=== PATIENT | female | born 1935 | race Caucasian/White ===

== ENCOUNTER 2018-12-27 20:44 | Inpatient (IN) | payer MEDICARE, MEDICAID | END 2018-12-29 11:35 | disposition home or self-care (01) | LOC: PCU 3S 12-28 01:10 → ER 20:44 → ED HOLD 22:30 | DX: T78.3XXA Angioneurotic edema, initial encounter (principal); J96.11 Chronic respiratory failure with hypoxia; N18.3 Chronic kidney disease, stage 3 (moderate); I12.9 Hypertensive chronic kidney disease with stage 1 through stage 4 chronic kidney disease, or unspecified chronic kidney disease; B02.9 Zoster without complications; I48.0 Paroxysmal atrial fibrillation ==

== ENCOUNTER 2019-01-22 07:42 | Emergency (ER) | payer MEDICARE, MEDICAID ==
[~2019-01-22] VITALS: Ht 157.5 cm; Wt 59.0 kg
[~2019-01-22 07:42] MED LIST: BUDE10.2 INH; DIGO250T PO; ESTR2TAB PO; HYDR25TA4 PO; IPRA4AER IH; LEVO75TA56 PO; MAGN250T11 PO; POTA10TA10 PO; PRAM0.258 PO; PREG50CA PO; SIMV40TA4 PO; TORS20TA3 PO; VALA-7 PO
[2019-01-22 08:30] LABS: CLARITY,URINE SLIGHTLY CLOUDY (Clear); COLOR,URINE STRAW (Yellow); GLUCOSE, URINE NEGATIVE (Neg); KETONES,URINE NEGATIVE (Neg); LEUKOCYTE ESTERASE ,URINE TRACE (Neg); NITRITES, URINE NEGATIVE (Neg); OCCULT BLOOD,URINE NEGATIVE (Neg); PH,URINE 7.5 (4.8-8.0); PROTEIN,URINE NEGATIVE (Neg); UROBILINOGEN,URINE 0.2 E.U/dL (0.2-1.0)
[2019-01-22 08:33] LABS: UA COLLECTION TYPE CLN CATCH MIDSTREAM
[2019-01-22 08:35] LABS: BACTERIA,URINE FEW /HPF (Neg); MUCUS STRANDS NONE SEEN /LPF (Neg); RBC,URINE NONE SEEN /HPF (0-2); RENAL CELLS, URINE FEW /HPF; SQUAMOUS EPITHELIAL CELL,UR MODERATE /LPF (FEW); WBC,URINE 0-4 /HPF (0-4)
[2019-01-22 08:36] LABS: BASOPHILS % (AUTO) 0.2 % (0-1); EOSINOPHILS % (AUTO) 0.2 % (0-6); HEMATOCRIT 43.4 % (35.0-45.0); HEMOGLOBIN 14.1 g/dl (12.0-16.0); LYMPHOCYTES % (AUTO) 5.3 % (21-51); MEAN CORPUSCULAR HEMOGLOBIN 30.2 PG (27.0-31.0); MEAN CORPUSCULAR HGB CONC 32.4 g/dL (33.0-36.5); MEAN CORPUSCULAR VOLUME 93.1 FL (78-98); MEAN PLATELET VOLUME 10.6 FL (7.4-10.4); MONOCYTES # (AUTO) 1.2 X10'3 (0-0.9); MONOCYTES % (AUTO) 6.6 % (2-12); NEUTROPHILS # (AUTO) 16.1 X10'3 (1.8-7.7); NEUTROPHILS % (AUTO) 87.7 % (42-75); PLATELET COUNT 282 X10'3 (140-440); RED BLOOD COUNT 4.66 X10'6 (4.20-5.60); RED CELL DISTRIBUTION WIDTH 13.3 % (11.5-14.5); WHITE BLOOD COUNT 18.3 X10'3 (4.5-11.0)
[2019-01-22 08:56] LABS: ALANINE AMINOTRANSFERASE 47 U/L (12-78); ALBUMIN 3.2 G/DL (3.4-5.0); ALBUMIN/GLOBULIN RATIO 0.7 (1.1-1.5); ALKALINE PHOSPHATASE 93 IU/L (46-116); ANION GAP 4 (8-16); ASPARTATE AMINO TRANSFERASE 26 U/L (10-37); BILIRUBIN,TOTAL 0.6 MG/DL (0.1-1.0); BLOOD UREA NITROGEN 17 MG/DL (7-18); BUN/CREATININE RATIO 19.5 (6.6-38.0); CALCIUM 9.2 MG/DL (8.5-10.1); CHLORIDE 97 MMOL/L (99-107); CREATININE 0.87 MG/DL (0.40-0.90); GLUCOSE 157 MG/DL (70-104); POTASSIUM 4.4 MMOL/L (3.5-5.1); SODIUM 140 MMOL/L (135-145); TOTAL CARBON DIOXIDE 38.9 MMOL/L (24-32); TOTAL PROTEIN 7.9 G/DL (6.4-8.2); TROPONIN I < 0.04 NG/ML (0.0-0.05); eGFR 62 ML/MIN
[2019-01-22 09:12] LABS: LARGE PLATELETS FEW; PLATELET ESTIMATE NORMAL; TOTAL CELLS COUNTED 100
[2019-01-22 09:13] LABS: STOMATOCYTES 1+
[2019-01-22] MEDS ORDERED: cephalexin 250mg capsule PO ONE (09:40)
[2019-01-22] MEDS ORDERED: cephalexin 500mg capsule PO ONE (09:45)
[2019-01-22] MEDS ORDERED: CEPH500C5 PO (10:33)
[2019-01-22] MEDS ORDERED: HYDR25TA4 PO (10:33)
[2019-01-22] MEDS ORDERED: HYDROcodone/acetaminophen 10/325mg tab PO ONE (10:35)
[2019-01-22 11:44] VITALS: BP 150/80
== END 2019-01-22 11:49 | disposition home or self-care (01) ==
LOC: ER 07:42
DX: N39.0 Urinary tract infection, site not specified (principal); I10 Essential (primary) hypertension; I48.91 Unspecified atrial fibrillation; J44.9 Chronic obstructive pulmonary disease, unspecified; G62.9 Polyneuropathy, unspecified; Z88.1 Allergy status to other antibiotic agents; Z88.8 Allergy status to other drugs, medicaments and biological substances; Z79.899 Other long term (current) drug therapy; Z90.710 Acquired absence of both cervix and uterus; Z87.891 Personal history of nicotine dependence
CPT/HCPCS: 36415; 71045; 80053; 81001; 83880; 84145; 84484; 85025; 87077; 87088; 87186; 93005; 99284

== ENCOUNTER 2019-07-28 06:28 | Emergency (ER) | payer MEDICARE, MEDICAID ==
[~2019-07-28] VITALS: Ht 172.7 cm; Wt 65.0 kg
[~2019-07-28 06:28] MED LIST changes: +CEPH500C5 PO
[2019-07-28] MEDS ORDERED: LIDOcaine 1% w/epiNEPHrine 1:200,000 30ml vial IM ONE (06:35)
[2019-07-28] MEDS ORDERED: TETanus/Pertussis (Acell)/Diphther VAC/PF (Tdap-Adult) 0.5ml syringe IM ONE (06:35)
[2019-07-28] MEDS ORDERED: ceFAZolin 1000mg inj IV ONE (07:10)
[2019-07-28] MEDS ORDERED: cefazolin/dext.iso 2gm/100ml 100 ML IV ONE (07:15)
[2019-07-28] MEDS ORDERED: bacitracin 15gm ointment TP ONE (07:30)
[2019-07-28 08:15] VITALS: BP 172/80
[2019-07-28] MEDS ORDERED: CEPH-572 PO (09:18)
== END 2019-07-28 09:47 | disposition home or self-care (01) ==
LOC: ER 06:29
DX: S91.112A Laceration without foreign body of left great toe without damage to nail, initial encounter (principal); S91.115A Laceration without foreign body of left lesser toe(s) without damage to nail, initial encounter; S90.415A Abrasion, left lesser toe(s), initial encounter; G62.9 Polyneuropathy, unspecified; I48.91 Unspecified atrial fibrillation; I10 Essential (primary) hypertension; J44.9 Chronic obstructive pulmonary disease, unspecified; Z90.710 Acquired absence of both cervix and uterus; Z88.8 Allergy status to other drugs, medicaments and biological substances; Z88.1 Allergy status to other antibiotic agents; Z88.6 Allergy status to analgesic agent; Z79.899 Other long term (current) drug therapy; W45.8XXA Other foreign body or object entering through skin, initial encounter; Y93.89 Activity, other specified; Y92.092 Bedroom in other non-institutional residence as the place of occurrence of the external cause; Y99.9 Unspecified external cause status
CPT/HCPCS: 73630; 90471; 96365; 99283; J0690

== ENCOUNTER 2019-11-19 16:53 | Inpatient (IN) | payer MEDICARE, MEDICAID ==
[~2019-11-19] VITALS: Ht 152.4 cm; Wt 65.0 kg
[~2019-11-19 16:53] MED LIST changes: +SIMV-45 PO; -SIMV40TA4 PO
[2019-11-19 17:42] LABS: BASOPHILS % (AUTO) 0.1 % (0-1); EOSINOPHILS % (AUTO) 0.2 % (0-6); HEMATOCRIT 38.9 % (35.0-45.0); HEMOGLOBIN 12.7 g/dl (12.0-16.0); LYMPHOCYTES # (AUTO) 1.7 X10'3 (1.1-4.8); LYMPHOCYTES % (AUTO) 8.4 % (21-51); MEAN CORPUSCULAR HEMOGLOBIN 31.5 PG (27.0-31.0); MEAN CORPUSCULAR HGB CONC 32.8 g/dL (33.0-36.5); MEAN CORPUSCULAR VOLUME 96.3 FL (78-98); MEAN PLATELET VOLUME 10.6 FL (7.4-10.4); MONOCYTES # (AUTO) 1.4 X10'3 (0-0.9); MONOCYTES % (AUTO) 6.8 % (2-12); NEUTROPHILS # (AUTO) 16.9 X10'3 (1.8-7.7); NEUTROPHILS % (AUTO) 84.5 % (42-75); PLATELET COUNT 164 X10'3 (140-440); RED BLOOD COUNT 4.04 X10'6 (4.20-5.60)
[2019-11-19 17:50] LABS: ALANINE AMINOTRANSFERASE 43 U/L (12-78); ALBUMIN 3.4 G/DL (3.4-5.0); ALBUMIN/GLOBULIN RATIO 0.9 (1.1-1.5); ALKALINE PHOSPHATASE 54 IU/L (46-116); ANION GAP 6 (8-16); ASPARTATE AMINO TRANSFERASE 22 U/L (10-37); BILIRUBIN,TOTAL 0.4 MG/DL (0.1-1.0); BLOOD UREA NITROGEN 39 MG/DL (7-18); BUN/CREATININE RATIO 31.7 (6.6-38.0); CALCIUM 8.8 MG/DL (8.5-10.1); CHLORIDE 102 MMOL/L (99-107); CREATININE 1.23 MG/DL (0.40-0.90); GLUCOSE 107 MG/DL (70-104); POTASSIUM 3.7 MMOL/L (3.5-5.1); SODIUM 143 MMOL/L (135-145); TOTAL CARBON DIOXIDE 34.6 MMOL/L (24-32); eGFR 42 ML/MIN
[2019-11-19] MEDS ORDERED: CefTRIAXone/D5W-Rocephin 1gm 50 ML IV SCH (17:55)
[2019-11-19 17:58] LABS: LARGE PLATELETS FEW; PLATELET ESTIMATE NORMAL
[2019-11-19] MEDS ORDERED: CefTRIAXone/D5W-Rocephin 1gm 50 ML IV ONE (18:07)
[2019-11-19 18:25] LABS: PARTIAL THROMBOPLASTIN TIME 24 SECONDS (22-32)
[2019-11-19] MEDS ORDERED: HYDR-3972 (18:57)
[2019-11-19 19:02] LABS: CLARITY,URINE SLIGHTLY CLOUDY (Clear); COLOR,URINE YELLOW (Yellow); GLUCOSE, URINE NEGATIVE (Neg); KETONES,URINE NEGATIVE (Neg); LEUKOCYTE ESTERASE ,URINE TRACE (Neg); NITRITES, URINE NEGATIVE (Neg); OCCULT BLOOD,URINE NEGATIVE (Neg); PH,URINE 6.5 (4.8-8.0); PROTEIN,URINE NEGATIVE (Neg); UROBILINOGEN,URINE 0.2 E.U/dL (0.2-1.0)
[2019-11-19 19:10] LABS: UA COLLECTION TYPE VOIDED
--- NOTE | 2019-11-19 19:10 | NUR ---
pt chnaged in to gown taken off o2 at this time o2 sats at 96 % room air will continue to monitor
[2019-11-19 19:15] LABS: BACTERIA,URINE FEW /HPF (Neg); MUCUS STRANDS NONE SEEN /LPF (Neg); RBC,URINE NONE SEEN /HPF (0-2); SQUAMOUS EPITHELIAL CELL,UR MODERATE /LPF (FEW)
--- NOTE | 2019-11-19 19:15 | NUR ---
heprin delay / awaiting pending ptt value prior to infusion
[2019-11-19] MEDS ORDERED: magnesium 4gm in 100ml NS 100 ML IV PRN (19:25)
[2019-11-19] MEDS ORDERED: mag hydrox/Alum hydrox/simeth 30ml oral suspension PO PRN (19:25)
[2019-11-19] MEDS ORDERED: potassium Cl 20 mEq SR tablet PO PRN ×2 (19:25)
[2019-11-19] MEDS ORDERED: magnesium hydroxide 30ml (MOM) UD suspension PO PRN (19:25)
[2019-11-19] MEDS ORDERED: potassium CL 10mEq/100ml bag 100 ML IV PRN ×2 (19:25)
[2019-11-19] MEDS ORDERED: ondansetron/PF 4mg/2ml inj IV PRN (19:25)
[2019-11-19] MEDS ORDERED: magnesium Cl slow-release 64mg tablet PO PRN (19:25)
[2019-11-19] MEDS ORDERED: magnesium 2GM in 50ml NS 50 ML IV PRN (19:25)
[2019-11-19] MEDS ORDERED: acetaminophen 325mg tablet PO PRN (19:25)
[2019-11-19] MEDS ORDERED: non-formulary drug (Pregabalin (Lyrica) 1 CAP) PO PRN (19:30)
[2019-11-19] MEDS ORDERED: non-formulary drug (Ipratropium/Albuterol Sulfate (Combivent Respimat Inhal Spray) 2 PUFFS IH PRN (19:30)
[2019-11-19] MEDS ORDERED: ipratropium/albuterol 3ml nebule IH PRN (19:45)
[2019-11-19] MEDS: heparin 25,000 UNIT/250ml bag 250 ML IV SCH (19:49)
--- NOTE | 2019-11-19 19:50 | NUR ---
md did not order heprin bolus /
[2019-11-19] MEDS ORDERED: non-formulary drug (Budesonide/Formoterol Fumarate (Symbicort 160-4.5 Mcg Inhaler) 2 PUFFS INH SCH (20:00)
[2019-11-19] MEDS: K and/or MAG REPLACEMENT MC SCH (20:00)
--- NOTE | 2019-11-19 20:50 | NUR ---
PHONED PCU FOR REPORT " FERNANDO" STATED RN TO RECIEVE PT WILL HAVE TO CALL BACK FOR REPORT
[2019-11-19] MEDS: valacyclovir 500mg tablet PO SCH (21:00)
--- NOTE | 2019-11-19 21:27 | NUR ---
TROPONIN ELEVATED 3 HR DRAW AT 2.[address] SOLIZ
[2019-11-19 21:30] VITALS: BP 142/75
[2019-11-19] MEDS: albuterol 2.5 MG/3 ML nebule NEB SCH (21:54)
[2019-11-19] MEDS: budesonide 0.5mg/2ml UD nebule IH SCH (21:54)
[2019-11-19] MEDS: pregabalin 25mg capsule PO PRN (23:00)
[2019-11-19] MEDS: atorvastatin 20mg tablet PO SCH (23:00)
[2019-11-19] MEDS: cephalexin 250mg capsule PO SCH (23:01)
[2019-11-19] MEDS: pramipexole 0.25mg tablet PO SCH (23:02)
[2019-11-20] VITALS (7 sets, daily range): BP systolic 129–172; BP diastolic 68–94
[2019-11-20] MEDS: albuterol 2.5 MG/3 ML nebule NEB SCH ×4 (02:14→20:13)
[2019-11-20 03:32] LABS: ALANINE AMINOTRANSFERASE 36 U/L (12-78); ALBUMIN 3.3 G/DL (3.4-5.0); ALBUMIN/GLOBULIN RATIO 0.9 (1.1-1.5); ALKALINE PHOSPHATASE 54 IU/L (46-116); ANION GAP 7 (8-16); ASPARTATE AMINO TRANSFERASE 25 U/L (10-37); BILIRUBIN,TOTAL 0.3 MG/DL (0.1-1.0); BLOOD UREA NITROGEN 34 MG/DL (7-18); BUN/CREATININE RATIO 28.6 (6.6-38.0); CHLORIDE 99 MMOL/L (99-107); CREATININE 1.19 MG/DL (0.40-0.90); GLUCOSE 113 MG/DL (70-104); POTASSIUM 3.9 MMOL/L (3.5-5.1); SODIUM 139 MMOL/L (135-145); TOTAL CARBON DIOXIDE 33.2 MMOL/L (24-32); TOTAL PROTEIN 7.1 G/DL (6.4-8.2); eGFR 43 ML/MIN
[2019-11-20 03:35] LABS: CHOLESTEROL 164 MG/DL (0-200); MAGNESIUM 1.5 MG/DL (1.5-2.4)
[2019-11-20 03:36] LABS: CHOL/HDL RATIO 2.3 (0.00-4.99); HDL CHOLESTEROL 70 MG/DL (35-60); LDL CHOLESTEROL 48 MG/DL (50-100); TRIGLYCERIDES 488 MG/DL (20-135)
[2019-11-20] MEDS: heparin 10,000 units/1 ML INJ IV PRN ×3 (04:01→18:00)
[2019-11-20 05:46] LABS: BASOPHILS % (AUTO) 0.1 % (0-1); EOSINOPHILS % (AUTO) 0 % (0-6); HEMATOCRIT 38.6 % (35.0-45.0); HEMOGLOBIN 12.9 g/dl (12.0-16.0); LYMPHOCYTES # (AUTO) 1.1 X10'3 (1.1-4.8); LYMPHOCYTES % (AUTO) 7.4 % (21-51); MEAN CORPUSCULAR HGB CONC 33.4 g/dL (33.0-36.5); MEAN CORPUSCULAR VOLUME 95.9 FL (78-98); MEAN PLATELET VOLUME 11.8 FL (7.4-10.4); MONOCYTES # (AUTO) 1.3 X10'3 (0-0.9); MONOCYTES % (AUTO) 8.2 % (2-12); NEUTROPHILS % (AUTO) 84.3 % (42-75); PLATELET COUNT 171 X10'3 (140-440); RED BLOOD COUNT 4.02 X10'6 (4.20-5.60); RED CELL DISTRIBUTION WIDTH 14.3 % (11.5-14.5); WHITE BLOOD COUNT 15.4 X10'3 (4.5-11.0)
[2019-11-20 07:11] LABS: GIANT PLATELET FEW; LARGE PLATELETS FEW; PLATELET ESTIMATE NORMAL
[2019-11-20] MEDS: estradiol 1mg tablet PO SCH (07:56)
[2019-11-20] MEDS: cephalexin 250mg capsule PO SCH ×2 (07:56→13:12)
[2019-11-20] MEDS: potassium Cl 20 mEq SR tablet PO SCH (07:56)
[2019-11-20] MEDS: pregabalin 25mg capsule PO PRN ×2 (07:57→18:43)
[2019-11-20] MEDS: levoTHYROXINE 75mcg tablet PO SCH (07:57)
[2019-11-20] MEDS: magnesium oxide 400mg tablet PO SCH (07:57)
[2019-11-20] MEDS ORDERED: non-formulary drug (Magnesium Oxide (Magnesium) 2 TAB) PO SCH (08:00)
[2019-11-20] MEDS: K and/or MAG REPLACEMENT MC SCH ×2 (08:00→19:20)
[2019-11-20] MEDS ORDERED: digoxin 250mcg (0.25mg) tablet PO SCH (08:00)
[2019-11-20] MEDS ORDERED: POTASSIUM CHLORIDE 20 MEQ PO SCH (08:00)
[2019-11-20] MEDS ORDERED: ESTRADIOL PO SCH (08:00)
[2019-11-20] MEDS: TORSEMIDE 20 MG PO SCH (08:00)
[2019-11-20] MEDS: budesonide 0.5mg/2ml UD nebule IH SCH ×2 (09:12→20:13)
[2019-11-20] MEDS: HYDROcodone/acetaminophen 10/325mg tab PO PRN ×3 (09:52→23:39)
[2019-11-20] MEDS ORDERED: aspirin 81mg tab.chew PO ONE (10:55)
[2019-11-20] MEDS: heparin 25,000 UNIT/250ml bag 250 ML IV SCH ×3 (11:23→20:39)
--- NOTE | 2019-11-20 12:46 | NUR ---
Dr. Julien paged regarding increased BP. Home medication, Torsemide not available, Dr. Julien notified. PAGER ID: [phone] MESSAGE: re 3014a Nikkie Horton: Pt Bp 160/86, no currently on bp medication. Home med Torsemide not available and unable to bring in. Can you please change this? Thanks, Liss [phone]
[2019-11-20] MEDS: normal saline 1000ml 1,000 ML IV SCH (14:33)
--- NOTE | 2019-11-20 14:52 | NUR ---
Page sent to Dr. Julien regarding positive blood cultures. PAGER ID: [phone] MESSAGE: re [id number] Nikkie Horton-Pos blood culture-Gram pos cocci in clusters. Thanks, Liss Christianson x [phone]
[2019-11-20] MEDS: CefTRIAXone/D5W-Rocephin 1gm 50 ML IV SCH (15:30)
--- NOTE | 2019-11-20 18:28 | NUR ---
Patient in room PCU 3014. I have received report from Liss DUMONT and had the opportunity to ask questions and assume patient care.
[2019-11-20] MEDS: valacyclovir 500mg tablet PO SCH (20:29)
[2019-11-20] MEDS: pramipexole 0.25mg tablet PO SCH (20:29)
[2019-11-20] MEDS: atorvastatin 20mg tablet PO SCH (20:29)
[2019-11-21] VITALS (9 sets, daily range): BP systolic 128–202; BP diastolic 61–106
[2019-11-21 00:15] LABS: EOSINOPHILS # (AUTO) 0.1 X10'3 (0-0.9); EOSINOPHILS % (AUTO) 0.4 % (0-6); HEMOGLOBIN 13.7 g/dl (12.0-16.0); MONOCYTES # (AUTO) 1.1 X10'3 (0-0.9)
[2019-11-21 00:20] LABS: BASOPHILS % (AUTO) 0.3 % (0-1); HEMATOCRIT 40.3 % (35.0-45.0); LYMPHOCYTES # (AUTO) 1.2 X10'3 (1.1-4.8); LYMPHOCYTES % (AUTO) 8.3 % (21-51); MEAN CORPUSCULAR HEMOGLOBIN 32.2 PG (27.0-31.0); MEAN CORPUSCULAR HGB CONC 33.8 g/dL (33.0-36.5); MEAN PLATELET VOLUME 10.3 FL (7.4-10.4); MONOCYTES % (AUTO) 7.6 % (2-12); NEUTROPHILS # (AUTO) 12.2 X10'3 (1.8-7.7); NEUTROPHILS % (AUTO) 83.4 % (42-75); PLATELET COUNT 167 X10'3 (140-440); RED BLOOD COUNT 4.24 X10'6 (4.20-5.60); RED CELL DISTRIBUTION WIDTH 14.3 % (11.5-14.5); WHITE BLOOD COUNT 14.6 X10'3 (4.5-11.0)
[2019-11-21 00:27] LABS: ALANINE AMINOTRANSFERASE 35 U/L (12-78); ALBUMIN 3.5 G/DL (3.4-5.0); ALBUMIN/GLOBULIN RATIO 0.9 (1.1-1.5); ALKALINE PHOSPHATASE 60 IU/L (46-116); ANION GAP 3 (8-16); ASPARTATE AMINO TRANSFERASE 21 U/L (10-37); BILIRUBIN,TOTAL 0.4 MG/DL (0.1-1.0); BLOOD UREA NITROGEN 27 MG/DL (7-18); BUN/CREATININE RATIO 23.5 (6.6-38.0); CHLORIDE 102 MMOL/L (99-107); CREATININE 1.15 MG/DL (0.40-0.90); GLUCOSE 119 MG/DL (70-104); MAGNESIUM 1.6 MG/DL (1.5-2.4); POTASSIUM 4.3 MMOL/L (3.5-5.1); SODIUM 138 MMOL/L (135-145); TOTAL CARBON DIOXIDE 32.6 MMOL/L (24-32); TOTAL PROTEIN 7.6 G/DL (6.4-8.2); eGFR 45 ML/MIN
[2019-11-21] MEDS: heparin 10,000 units/1 ML INJ IV PRN ×2 (00:45→07:55)
[2019-11-21] MEDS: heparin 25,000 UNIT/250ml bag 250 ML IV SCH ×3 (00:47→16:07)
[2019-11-21] MEDS: albuterol 2.5 MG/3 ML nebule NEB SCH ×3 (02:25→15:35)
[2019-11-21] MEDS: normal saline 1000ml 1,000 ML IV SCH ×2 (03:09→20:29)
--- NOTE | 2019-11-21 06:46 | NUR ---
Problems reprioritized. Patient report given, questions answered & plan of care reviewed with Callum RN.
--- NOTE | 2019-11-21 07:14 | NUR ---
Patient in room PCU 3014. I have received report from TIM SCHULER and had the opportunity to ask questions and assume patient care.
[2019-11-21] MEDS: TORSEMIDE 20 MG PO SCH (08:00)
[2019-11-21] MEDS: K and/or MAG REPLACEMENT MC SCH ×2 (08:00→20:00)
[2019-11-21] MEDS: estradiol 1mg tablet PO SCH (08:30)
[2019-11-21] MEDS: aspirin 81mg tab.chew PO SCH (08:31)
[2019-11-21] MEDS: potassium Cl 20 mEq SR tablet PO SCH (08:31)
[2019-11-21] MEDS: levoTHYROXINE 75mcg tablet PO SCH (08:31)
[2019-11-21] MEDS: magnesium oxide 400mg tablet PO SCH (08:32)
[2019-11-21] MEDS: budesonide 0.5mg/2ml UD nebule IH SCH ×2 (08:42→19:46)
[2019-11-21] MEDS: HYDROcodone/acetaminophen 10/325mg tab PO PRN ×3 (09:08→23:43)
--- NOTE | 2019-11-21 10:00 | NUR ---
discussed removing field start piv left ac,and starting new piv for heparin gtt. pt refused new iv start.
[2019-11-21] MEDS ORDERED: vancomycin/NS 1 GM ADD-VANTAGE 250 ML X 1 DOSE IV ONE (12:05)
--- NOTE | 2019-11-21 12:33 | NUR ---
CALL TO RX, STATES "WE WILL SEND THE VANCO UP, WILL BE IN PT SPECIFIC BOX OR REFRIGERATOR".
--- NOTE | 2019-11-21 12:52 | NUR ---
Pt has a field start IV in her left forearm. Pt refused new IV. Field start IV necessary for heparin drip.
[2019-11-21] MEDS ORDERED: vancomycin/NS 1 GM ADD-VANTAGE 250 ML IV SCH (13:00)
[2019-11-21] MEDS ORDERED: OXY (13:24)
--- NOTE | 2019-11-21 13:32 | NUR ---
PAGER ID: [phone] MESSAGE: DR. LILLY, 2024M/VICTORIA. SHE IS VERY CONCERNED WE ARE NOT GIVING HER DIGOXIN. LEVEL ON ADMIT 3.0 NICKI [id number]. TY
--- NOTE | 2019-11-21 14:48 | NUR ---
PAGER ID: [phone] MESSAGE: DR. LILLY, 3014A/KSESLER, HR NOW SUSTAINING 130. BP 217/129 RIGHT ARM AUTOCUFF.250/130 MAN L, 230/120 R MAN. HAVE NO PRN TREATMENT. NICKI [id number]. TY
--- NOTE | 2019-11-21 14:55 | NUR ---
PT STATES "I HAVE A PAIN PILL AND A DIGOXIN PILL IN MY PURSE. I WILL NOT TAKE THEM". AKED FOR THE PILLS TO STORE IN RX, PT REFUSED. DISCUSSED WITH WOODY SOLIS RN. IF FAMILY COMES WILL ASK IF THEY CAN TAKE THEM HOME FOR HER.
--- NOTE | 2019-11-21 14:57 | NUR ---
DR. LILLY, 3014A/KESSLER, ALONG WITH HR 130 AND BP 250/130, SHE APPEARS VERY ANXIOUS/UPSET SOME OF HER ROUTINE MEDS ARE NOT BEING GIVEN. I NEED HELP WITH HER PLEASE. BP TOO HIGH. HR NOW 150. NICKI [id number]. TY
--- NOTE | 2019-11-21 15:04 | NUR ---
PAGER ID: [phone] MESSAGE: DR. LILLY, 3014A/KESSLER, ALONG WITH HR 130 AND BP 250/130, SHE APPEARS VERY ANXIOUS/UPSET SOME OF HER ROUTINE MEDS ARE NOT BEING GIVEN. I NEED HELP WITH HER PLEASE. BP TOO HIGH. HR NOW 150. NICKI [id number]. TY
[2019-11-21] MEDS ORDERED: hydrALAZINE 20mg/ml inj. IV PRN (15:05)
[2019-11-21] MEDS ORDERED: metoprolol tartrate 1mg/ml inj IV ONE (15:05)
[2019-11-21] MEDS ORDERED: amLODIPine 5mg tablet PO ONE (15:10)
[2019-11-21] MEDS: CefTRIAXone/D5W-Rocephin 1gm 50 ML IV SCH (15:41)
--- NOTE | 2019-11-21 15:47 | NUR ---
HAD ADM LOPRESSOR 5MG IV AND NORVASC 5MG PO, REPEAT BP/HR 165/86, 101. NOW HR 90, BP 172/8. REFUSED IV APPRESOLINE AT THIS TIME. STATES "I AM FELLING BETTER, GIVE IT MORE TIME, I KNOW MY BODY".
--- NOTE | 2019-11-21 17:41 | NUR ---
ASKED GRANDDAUGHTER TO PLEASE TAKE HERE MEDS FROM PURSE TO HOME, AND TO BRING HER TORSEMIDE FROM HOME SO WE CAN GIVE IT. VERBALIZED UNDERSTANDING.
--- NOTE | 2019-11-21 18:27 | NUR ---
Problems reprioritized. Patient report given, questions answered & plan of care reviewed with TIM SCHULER.
--- NOTE | 2019-11-21 18:31 | NUR ---
Patient in room PCU 3014. I have received report from Callum DUMONT and had the opportunity to ask questions and assume patient care.
[2019-11-21] MEDS: pregabalin 25mg capsule PO PRN (19:28)
[2019-11-21] MEDS: carVEDilol 3.125mg tablet PO SCH (19:28)
[2019-11-21] MEDS: ipratropium/albuterol 3ml nebule IH SCH (19:46)
[2019-11-21] MEDS: atorvastatin 20mg tablet PO SCH (20:30)
[2019-11-21] MEDS: valacyclovir 500mg tablet PO SCH (20:30)
[2019-11-21] MEDS: pramipexole 0.25mg tablet PO SCH (20:30)
--- NOTE | 2019-11-21 20:39 | NUR ---
Patient's blood pressure at 1830 was 178/99 and she was given her scheduled night time Coreg before the PRN Hydralazine to see how much this would decrease her blood pressure because she is just starting the Coreg so this would be her first dose. It brought her blood pressure down to 136/64.
[2019-11-22] VITALS (7 sets, daily range): BP systolic 126–173; BP diastolic 60–88
[2019-11-22] MEDS: heparin 25,000 UNIT/250ml bag 250 ML IV SCH ×2 (00:58→07:32)
[2019-11-22] MEDS: ipratropium/albuterol 3ml nebule IH SCH ×4 (01:57→21:25)
[2019-11-22] MEDS: HYDROcodone/acetaminophen 10/325mg tab PO PRN ×3 (05:24→20:18)
[2019-11-22 05:28] LABS: BASOPHILS % (AUTO) 0.2 % (0-1); EOSINOPHILS # (AUTO) 0.1 X10'3 (0-0.9); HEMATOCRIT 34.9 % (35.0-45.0); HEMOGLOBIN 11.8 g/dl (12.0-16.0); LYMPHOCYTES % (AUTO) 8.8 % (21-51); MEAN CORPUSCULAR HEMOGLOBIN 32.2 PG (27.0-31.0); MEAN CORPUSCULAR HGB CONC 33.8 g/dL (33.0-36.5); MEAN CORPUSCULAR VOLUME 95.3 FL (78-98); MEAN PLATELET VOLUME 10.7 FL (7.4-10.4); MONOCYTES # (AUTO) 0.7 X10'3 (0-0.9); NEUTROPHILS # (AUTO) 9.8 X10'3 (1.8-7.7); PLATELET COUNT 156 X10'3 (140-440); RED BLOOD COUNT 3.67 X10'6 (4.20-5.60); RED CELL DISTRIBUTION WIDTH 14.4 % (11.5-14.5); WHITE BLOOD COUNT 11.7 X10'3 (4.5-11.0)
[2019-11-22 05:56] LABS: ALANINE AMINOTRANSFERASE 29 U/L (12-78); ALBUMIN 2.9 G/DL (3.4-5.0); ALBUMIN/GLOBULIN RATIO 0.9 (1.1-1.5); ALKALINE PHOSPHATASE 49 IU/L (46-116); ANION GAP 5 (8-16); ASPARTATE AMINO TRANSFERASE 14 U/L (10-37); BILIRUBIN,TOTAL 0.4 MG/DL (0.1-1.0); BLOOD UREA NITROGEN 24 MG/DL (7-18); BUN/CREATININE RATIO 25.3 (6.6-38.0); CALCIUM 8.3 MG/DL (8.5-10.1); CHLORIDE 105 MMOL/L (99-107); CREATININE 0.95 MG/DL (0.40-0.90); GLUCOSE 117 MG/DL (70-104); MAGNESIUM 1.9 MG/DL (1.5-2.4); POTASSIUM 4.8 MMOL/L (3.5-5.1); SODIUM 138 MMOL/L (135-145); TOTAL CARBON DIOXIDE 28.5 MMOL/L (24-32); TOTAL PROTEIN 6.3 G/DL (6.4-8.2); eGFR 56 ML/MIN
[2019-11-22 06:33] LABS: LARGE PLATELETS FEW; PLATELET ESTIMATE NORMAL
--- NOTE | 2019-11-22 06:46 | NUR ---
Problems reprioritized. Patient report given, questions answered & plan of care reviewed with Callum RN.
--- NOTE | 2019-11-22 07:05 | NUR ---
Patient in room PCU 3014. I have received report from TIM SCHULER and had the opportunity to ask questions and assume patient care.
[2019-11-22] MEDS: budesonide 0.5mg/2ml UD nebule IH SCH ×2 (08:00→21:25)
[2019-11-22] MEDS: K and/or MAG REPLACEMENT MC SCH ×2 (08:00→20:00)
[2019-11-22] MEDS: carVEDilol 3.125mg tablet PO SCH ×2 (09:00→20:16)
[2019-11-22] MEDS: estradiol 1mg tablet PO SCH (09:00)
[2019-11-22] MEDS: potassium Cl 20 mEq SR tablet PO SCH (09:01)
[2019-11-22] MEDS: magnesium oxide 400mg tablet PO SCH (09:02)
[2019-11-22] MEDS: amLODIPine 5mg tablet PO SCH (09:02)
[2019-11-22] MEDS: levoTHYROXINE 75mcg tablet PO SCH (09:03)
[2019-11-22] MEDS: aspirin 81mg tab.chew PO SCH (09:03)
--- NOTE | 2019-11-22 09:14 | NUR ---
Heparin gtt d'olya at this time per MD order.
[2019-11-22] MEDS: TORSEMIDE 20 MG PO SCH (12:00)
--- NOTE | 2019-11-22 12:55 | NUR ---
Administered 1300 dose of Vancomycin per primary RN request. Pt educated on side effects and to notify staff immediately if she experiences any adverse reactions, pt verbalizes understanding. Pt also requesting breathing tx, paged RT.
[2019-11-22] MEDS ORDERED: vancomycin/NS 1 GM ADD-VANTAGE 250 ML IV SCH (13:00)
[2019-11-22] MEDS: CefTRIAXone/D5W-Rocephin 1gm 50 ML IV SCH (15:51)
[2019-11-22] MEDS: normal saline 1000ml 1,000 ML IV SCH (16:05)
--- NOTE | 2019-11-22 16:26 | NUR ---
Reassessed pt's BP at this time as 1500 BP was elevated. Pt states that she was upset when previous blood pressure was assessed but that she is feeling better now. Blood pressure at this time is 142/71. Pt resting comfortably, no signs of distress.
--- NOTE | 2019-11-22 18:19 | NUR ---
Problems reprioritized. Patient report given, questions answered & plan of care reviewed with timbo walters.
[2019-11-22] MEDS: atorvastatin 20mg tablet PO SCH (20:16)
[2019-11-22] MEDS: valacyclovir 500mg tablet PO SCH (20:16)
[2019-11-22] MEDS: pramipexole 0.25mg tablet PO SCH (20:16)
--- NOTE | 2019-11-22 21:40 | NUR ---
Patient in room PCU 3014. I have received report from TIM Nolen and had the opportunity to ask questions and assume patient care.
[2019-11-23] MEDS: HYDROcodone/acetaminophen 10/325mg tab PO PRN ×2 (01:20→08:09)
[2019-11-23 02:00] VITALS: BP 153/77
[2019-11-23] MEDS: ipratropium/albuterol 3ml nebule IH SCH ×2 (02:50→09:13)
[2019-11-23 06:00] VITALS: BP 153/75
[2019-11-23 06:18] LABS: BASOPHILS % (AUTO) 0.2 % (0-1); EOSINOPHILS # (AUTO) 0.1 X10'3 (0-0.9); HEMATOCRIT 37.3 % (35.0-45.0); HEMOGLOBIN 12.5 g/dl (12.0-16.0); LYMPHOCYTES # (AUTO) 0.9 X10'3 (1.1-4.8); LYMPHOCYTES % (AUTO) 6.6 % (21-51); MEAN CORPUSCULAR HEMOGLOBIN 31.9 PG (27.0-31.0); MEAN CORPUSCULAR HGB CONC 33.4 g/dL (33.0-36.5); MEAN CORPUSCULAR VOLUME 95.5 FL (78-98); MONOCYTES # (AUTO) 0.8 X10'3 (0-0.9); MONOCYTES % (AUTO) 5.6 % (2-12); NEUTROPHILS % (AUTO) 86.6 % (42-75); PLATELET COUNT 172 X10'3 (140-440); RED BLOOD COUNT 3.91 X10'6 (4.20-5.60); RED CELL DISTRIBUTION WIDTH 14.3 % (11.5-14.5); WHITE BLOOD COUNT 13.8 X10'3 (4.5-11.0)
--- NOTE | 2019-11-23 06:29 | NUR ---
Problems reprioritized. Patient report given, questions answered & plan of care reviewed with TIM MARCUS.
--- NOTE | 2019-11-23 06:30 | NUR ---
Patient in room PCU 3014. I have received report from Sandra DUMONT and had the opportunity to ask questions and assume patient care.
[2019-11-23 06:41] LABS: ALANINE AMINOTRANSFERASE 34 U/L (12-78); ALBUMIN 3.2 G/DL (3.4-5.0); ALBUMIN/GLOBULIN RATIO 0.9 (1.1-1.5); ALKALINE PHOSPHATASE 58 IU/L (46-116); ANION GAP 6 (8-16); ASPARTATE AMINO TRANSFERASE 14 U/L (10-37); BILIRUBIN,TOTAL 0.4 MG/DL (0.1-1.0); BLOOD UREA NITROGEN 27 MG/DL (7-18); BUN/CREATININE RATIO 26.5 (6.6-38.0); CALCIUM 8.5 MG/DL (8.5-10.1); CHLORIDE 101 MMOL/L (99-107); CREATININE 1.02 MG/DL (0.40-0.90); GLUCOSE 107 MG/DL (70-104); MAGNESIUM 1.8 MG/DL (1.5-2.4); POTASSIUM 4.4 MMOL/L (3.5-5.1); SODIUM 137 MMOL/L (135-145); TOTAL CARBON DIOXIDE 30.5 MMOL/L (24-32); TOTAL PROTEIN 6.8 G/DL (6.4-8.2); eGFR 52 ML/MIN
[2019-11-23] MEDS: K and/or MAG REPLACEMENT MC SCH (08:00)
[2019-11-23] MEDS: magnesium oxide 400mg tablet PO SCH (08:07)
[2019-11-23] MEDS: levoTHYROXINE 75mcg tablet PO SCH (08:07)
[2019-11-23] MEDS: aspirin 81mg tab.chew PO SCH (08:07)
[2019-11-23] MEDS: amLODIPine 5mg tablet PO SCH (08:07)
[2019-11-23] MEDS: carVEDilol 3.125mg tablet PO SCH (08:07)
[2019-11-23] MEDS: potassium Cl 20 mEq SR tablet PO SCH (08:08)
[2019-11-23] MEDS: estradiol 1mg tablet PO SCH (08:08)
[2019-11-23] MEDS: TORSEMIDE 20 MG PO SCH (08:08)
[2019-11-23] MEDS: budesonide 0.5mg/2ml UD nebule IH SCH (09:13)
[2019-11-23] MEDS ORDERED: CARV-49 PO (10:29)
[2019-11-23] MEDS ORDERED: ASPI-1265 PO (10:29)
[2019-11-23] MEDS ORDERED: AMOX-422 PO (10:29)
[2019-11-23] MEDS ORDERED: APIX5TAB3 PO (10:30)
[2019-11-23 11:00] VITALS: BP 161/92
[2019-11-23 12:03] VITALS: BP 157/61
--- NOTE | 2019-11-23 12:47 | NUR ---
Patient stable for discharge per MD orders. All discharge instructions reviewed with patient and family. All questions answered. New prescriptions e-scripted into patient preferred pharmacy. PIV & cardiac monitor technician discontinued. Belongings collected and sent with patient. Patient left in private vehicle with family. Patient wheeled down to lobby by primary RN.
[2019-11-24] MEDS ORDERED: VANCOMYCIN LEVEL IV ONE (12:30)
== END 2019-11-23 12:47 | disposition home or self-care (01) | DRG 871 ==
LOC: ER 16:53 → ED HOLD 19:21 → PCU 3S 21:30
PROVIDERS: ADMIT Internal Medicine; ATTEND Family Medicine
DX: A41.9 Sepsis, unspecified organism (principal); I21.4 Non-ST elevation (NSTEMI) myocardial infarction; N39.0 Urinary tract infection, site not specified; N17.9 Acute kidney failure, unspecified; I48.21 Permanent atrial fibrillation; E87.2 Acidosis; I25.110 Atherosclerotic heart disease of native coronary artery with unstable angina pectoris; J44.1 Chronic obstructive pulmonary disease with (acute) exacerbation; N18.9 Chronic kidney disease, unspecified; E03.9 Hypothyroidism, unspecified; E78.5 Hyperlipidemia, unspecified; I12.9 Hypertensive chronic kidney disease with stage 1 through stage 4 chronic kidney disease, or unspecified chronic kidney disease; J44.9 Chronic obstructive pulmonary disease, unspecified; Z79.82 Long term (current) use of aspirin; Z80.1 Family history of malignant neoplasm of trachea, bronchus and lung; Z80.8 Family history of malignant neoplasm of other organs or systems; Z87.891 Personal history of nicotine dependence; Z90.710 Acquired absence of both cervix and uterus; Z88.1 Allergy status to other antibiotic agents; Z88.8 Allergy status to other drugs, medicaments and biological substances; Z79.899 Other long term (current) drug therapy; Z90.49 Acquired absence of other specified parts of digestive tract
CPT/HCPCS: 36415; 71045; 76937; 80053; 80061; 80162; 81001; 83036; 83605; 83735; 84443; 84484; 85025; 85610; 85730; 87040; 87077; 87081; 87088; 87186; 87502; 87503; 93005; 93306; 94640; 94760; 96365; 99285; G0378; J0360; J0696; J1644; J3370; J3490; J7030; J7626

== ENCOUNTER 2020-07-15 10:58 | Inpatient (IN) | payer MEDICARE, MEDICAID ==
[~2020-07-15] VITALS: Ht 172.7 cm; Wt 59.1 kg
[2020-07-15] VITALS (7 sets, daily range): BP systolic 118–155; BP diastolic 48–85
[~2020-07-15 10:58] MED LIST changes: +APIX5TAB3 PO; +ASPI-1265 PO; -CEPH500C5 PO; -DIGO250T PO; +HYDR-3972; -HYDR25TA4 PO; +OXY
[2020-07-15 11:34] LABS: CLARITY,URINE SLIGHTLY CLOUDY (Clear); COLOR,URINE YELLOW (Yellow); GLUCOSE, URINE NEGATIVE (Neg); KETONES,URINE NEGATIVE (Neg); LEUKOCYTE ESTERASE ,URINE NEGATIVE (Neg); NITRITES, URINE NEGATIVE (Neg); OCCULT BLOOD,URINE NEGATIVE (Neg); PROTEIN,URINE NEGATIVE (Neg); UA COLLECTION TYPE CLN CATCH MIDSTREAM; UROBILINOGEN,URINE 0.2 E.U/dL (0.2-1.0)
[2020-07-15 11:37] LABS: BASOPHILS # (AUTO) 0.1 X10'3 (0-0.2); BASOPHILS % (AUTO) 0.5 % (0-1); EOSINOPHILS # (AUTO) 0.2 X10'3 (0-0.9); EOSINOPHILS % (AUTO) 1.6 % (0-6); HEMATOCRIT 36.9 % (35.0-45.0); LYMPHOCYTES # (AUTO) 1.6 X10'3 (1.1-4.8); LYMPHOCYTES % (AUTO) 12.4 % (21-51); MEAN CORPUSCULAR HEMOGLOBIN 30.6 PG (27.0-31.0); MEAN CORPUSCULAR HGB CONC 32.4 g/dL (33.0-36.5); MEAN CORPUSCULAR VOLUME 94.2 FL (78-98); MEAN PLATELET VOLUME 11.3 FL (7.4-10.4); MONOCYTES # (AUTO) 0.9 X10'3 (0-0.9); MONOCYTES % (AUTO) 7.2 % (2-12); NEUTROPHILS % (AUTO) 78.3 % (42-75); PLATELET COUNT 127 X10'3 (140-440); RED BLOOD COUNT 3.91 X10'6 (4.20-5.60); WHITE BLOOD COUNT 12.8 X10'3 (4.5-11.0)
[2020-07-15 11:42] LABS: BACTERIA,URINE FEW /HPF (Neg); RBC,URINE 0-2 /HPF (0-2); SQUAMOUS EPITHELIAL CELL,UR MANY /LPF (FEW); WBC,URINE 0-4 /HPF (0-4)
[2020-07-15 11:54] LABS: ALANINE AMINOTRANSFERASE 12 U/L (12-78); ALBUMIN 3.3 G/DL (3.4-5.0); ALBUMIN/GLOBULIN RATIO 0.8 (1.1-1.5); ALKALINE PHOSPHATASE 53 IU/L (46-116); ANION GAP -1 (8-16); ASPARTATE AMINO TRANSFERASE 12 U/L (10-37); BILIRUBIN,TOTAL 0.4 MG/DL (0.1-1.0); BLOOD UREA NITROGEN 42 MG/DL (7-18); BUN/CREATININE RATIO 40.4 (6.6-38.0); CALCIUM 8.8 MG/DL (8.5-10.1); CHLORIDE 99 MMOL/L (99-107); CREATININE 1.04 MG/DL (0.40-0.90); GLUCOSE 132 MG/DL (70-104); LARGE PLATELETS FEW; PLATELET ESTIMATE DECREASED; POTASSIUM 4.3 MMOL/L (3.5-5.1); SODIUM 141 MMOL/L (135-145); STOMATOCYTES 3+; TOTAL PROTEIN 7.4 G/DL (6.4-8.2); eGFR 51 ML/MIN
--- NOTE | 2020-07-15 11:57 | NUR ---
LAB CALLED CO2 [address] BARKER
[2020-07-15] MEDS ORDERED: aspirin 81mg tab.chew PO ONE (12:45)
[2020-07-15] MEDS ORDERED: albuterol 2.5 MG/3 ML nebule NEB ONE (12:45)
[2020-07-15] MEDS ORDERED: furosemide 40mg/4ml inj IV ONE (12:45)
[2020-07-15] MEDS ORDERED: nitroGLYCERIN 0.4mg/hour patch TD ONE (12:45)
[2020-07-15] MEDS ORDERED: pantoprazole 40 MG vial IV ONE (12:45)
[2020-07-15] MEDS ORDERED: normal saline 1000ML IV soln IVB ONE (12:45)
[2020-07-15 12:59] LABS: LIPASE 87 U/L (73-393)
[2020-07-15 14:05] LABS: ABG BASE EXCESS 10.4 mmol/L (-2.0-2.0); ABG HCO3 41.1 mmol/L (22.0-26.0); ABG OXYGEN SATURATION 98.4 % (94-97); ABG PCO2 (T) 91.4 mmHg (32.0-45.0); ALLEN'S TEST POSITIVE; FCOHb 0.6 % (0.0-3.9); FLOW 2 L/min; FMetHb 0.1 % (0.0-1.5); FO2Hb 97.7 % (94-97); TOTAL HEMOGLOBIN 13.6 G/dl (12.0-16.0)
--- NOTE | 2020-07-15 14:24 | NUR ---
pt state pain in chest is almost all gone
[2020-07-15] MEDS ORDERED: DIGO250T (14:35)
[2020-07-15] MEDS ORDERED: magnesium Cl slow-release 64mg tablet PO PRN (14:45)
[2020-07-15] MEDS ORDERED: diphenhydrAMINE 25mg capsule PO PRN (14:45)
[2020-07-15] MEDS ORDERED: methylPREDNISolone sod succ 125mg/2ml vial IV ONE (14:45)
[2020-07-15] MEDS ORDERED: bisacodyl 10mg suppository rectal RC PRN (14:45)
[2020-07-15] MEDS ORDERED: potassium Cl 20 mEq SR tablet PO PRN (14:45)
[2020-07-15] MEDS ORDERED: diphenhydrAMINE 50 mg/ml inj IV PRN (14:45)
[2020-07-15] MEDS ORDERED: acetaminophen 325mg tablet PO PRN ×2 (14:45)
[2020-07-15] MEDS ORDERED: ondansetron/PF 4mg/2ml inj IV PRN (14:45)
[2020-07-15] MEDS ORDERED: morphine 2 MG/ML inj. syringe IV PRN ×2 (14:45)
[2020-07-15] MEDS ORDERED: potassium CL 10mEq/100ml bag 100 ML IV PRN ×2 (14:45)
[2020-07-15] MEDS ORDERED: magnesium 4gm in 100ml NS 100 ML IV PRN (14:45)
[2020-07-15] MEDS ORDERED: magnesium 2GM in 50ml NS 50 ML IV PRN (14:45)
[2020-07-15] MEDS ORDERED: acetaminophen 650mg rectal suppository RC PRN (14:45)
[2020-07-15] MEDS ORDERED: mag hydrox/Alum hydrox/simeth 30ml oral suspension PO PRN (14:45)
[2020-07-15] MEDS: ipratropium/albuterol 3ml nebule NEB SCH ×3 (15:00→23:43)
[2020-07-15 15:14] LABS: HEMOGLOBIN A1C 5.8 % (4.5-6.2)
--- NOTE | 2020-07-15 15:55 | NUR ---
Page to Dr. Mckeon Critical Lab Value PAGER ID: [phone] MESSAGE: Sherri Horton 3025A: Digoxin Level is 2.9 TxFederico Renee RN [phone]
[2020-07-15] MEDS: normal saline 1000ml 1,000 ML IV SCH (16:18)
[2020-07-15] MEDS: CefTRIAXone/D5W-Rocephin 1gm 50 ML IV SCH (16:18)
[2020-07-15] MEDS: azithromycin 250mg tablet PO SCH (16:20)
[2020-07-15] MEDS ORDERED: DIGOXIN IMMUNE FAB IV ONE ×3 (16:30)
[2020-07-15] MEDS ORDERED: [UNRECOGNIZED DRUG - OTHER] IV ONE ×3 (16:30)
[2020-07-15] MEDS ORDERED: WATER FOR INJECTION IV ONE ×3 (16:30)
[2020-07-15] MEDS ORDERED: STERILE IV ONE ×3 (16:30)
[2020-07-15 17:36] LABS: ABG BASE EXCESS 13.6 mmol/L (-2.0-2.0); ABG HCO3 42.5 mmol/L (22.0-26.0); ABG OXYGEN SATURATION 93.7 % (94-97); ABG PCO2 (T) 77.6 mmHg (32.0-45.0); ABG PO2 (T) 67.1 mmHg (75.0-100.0); ALLEN'S TEST POSITIVE; FCOHb 0.3 % (0.0-3.9); FMetHb 0.3 % (0.0-1.5); FO2Hb 93.1 % (94-97); RESPIRATORY RATE 12 b/min; TOTAL HEMOGLOBIN 12.8 G/dl (12.0-16.0)
--- NOTE | 2020-07-15 17:37 | NUR ---
Page to Mike: EDNA results on bi-pap PAGER ID: [phone] MESSAGE: [id number] Nikkie Horton on bi-pap results: Please see results Thankv You Simi RT. [phone] Pco2 was 91.4 and now is 77.6
--- NOTE | 2020-07-15 19:02 | NUR ---
Patient in room PCU 3025. I have received report from Thelma DUMONT and had the opportunity to ask questions and assume patient care.
[2020-07-15] MEDS ORDERED: budesonide 0.5mg/2ml UD nebule IH SCH (20:00)
[2020-07-15] MEDS: K and/or MAG REPLACEMENT MC SCH (20:00)
[2020-07-15] MEDS: valacyclovir 500mg tablet PO SCH (20:34)
[2020-07-15] MEDS: apixaban 5mg tablet PO SCH (20:34)
[2020-07-15] MEDS: atorvastatin 20mg tablet PO SCH (20:34)
[2020-07-15] MEDS: furosemide 40mg/4ml inj IV SCH (20:35)
[2020-07-15] MEDS: methylPREDNISolone sod succ 125mg/2ml vial IV SCH (20:35)
[2020-07-15] MEDS ORDERED: albuterol 2.5 MG/3 ML nebule NEB SCH (21:00)
[2020-07-15] MEDS ORDERED: temazepam 15mg capsule PO PRN (21:00)
[2020-07-15] MEDS: HYDROcodone/acetaminophen 10/325mg tab PO PRN (22:02)
[2020-07-15] MEDS: magnesium hydroxide 30ml (MOM) UD suspension PO PRN (22:13)
--- NOTE | 2020-07-15 23:23 | NUR ---
PAGER ID: [phone] MESSAGE: [id number] Nikkie Horton Orders just received for DNR code status but patient wants to be a limited code status with no intubation. May I get orders for new code status. Candida DUMONT ext [phone]
--- NOTE | 2020-07-15 23:26 | NUR ---
Talked to Dr Lynn on the phone regarding patient status. Dr Lynn stated she did not want to get between patient and Dr Mckeon discussion and orders. Received orders from Dr Lynn to leave patient status as DNR regardless of the fact that the patient wants to be a limited code with no intubation.
[2020-07-16] MEDS: methylPREDNISolone sod succ 125mg/2ml vial IV SCH ×4 (01:56→20:40)
[2020-07-16 02:03] VITALS: BP 114/58
[2020-07-16] MEDS: ipratropium/albuterol 3ml nebule NEB SCH ×6 (03:54→23:16)
[2020-07-16 06:00] VITALS: BP 119/55
[2020-07-16 06:07] LABS: EOSINOPHILS % (AUTO) 0 % (0-6); MEAN CORPUSCULAR VOLUME 93.8 FL (78-98); MONOCYTES # (AUTO) 0.1 X10'3 (0-0.9)
[2020-07-16 06:10] LABS: BASOPHILS % (AUTO) 0.1 % (0-1); HEMOGLOBIN 12.2 g/dl (12.0-16.0); LYMPHOCYTES # (AUTO) 0.8 X10'3 (1.1-4.8); MEAN CORPUSCULAR HEMOGLOBIN 30.8 PG (27.0-31.0); MEAN CORPUSCULAR HGB CONC 32.8 g/dL (33.0-36.5); MEAN PLATELET VOLUME 11.9 FL (7.4-10.4); NEUTROPHILS # (AUTO) 6.7 X10'3 (1.8-7.7); NEUTROPHILS % (AUTO) 88.9 % (42-75); PLATELET COUNT 141 X10'3 (140-440); RED BLOOD COUNT 3.95 X10'6 (4.20-5.60); RED CELL DISTRIBUTION WIDTH 14.2 % (11.5-14.5); WHITE BLOOD COUNT 7.5 X10'3 (4.5-11.0)
[2020-07-16 06:30] LABS: ALANINE AMINOTRANSFERASE 12 U/L (12-78); ALBUMIN 3.2 G/DL (3.4-5.0); ALBUMIN/GLOBULIN RATIO 0.8 (1.1-1.5); ALKALINE PHOSPHATASE 49 IU/L (46-116); ANION GAP 4 (8-16); ASPARTATE AMINO TRANSFERASE 14 U/L (10-37); BILIRUBIN,TOTAL 0.3 MG/DL (0.1-1.0); BLOOD UREA NITROGEN 45 MG/DL (7-18); BUN/CREATININE RATIO 34.1 (6.6-38.0); CALCIUM 8.5 MG/DL (8.5-10.1); CHLORIDE 97 MMOL/L (99-107); CHOL/HDL RATIO 2.3 (0.00-4.99); CHOLESTEROL 149 MG/DL (0-200); CREATININE 1.32 MG/DL (0.40-0.90); GLUCOSE 165 MG/DL (70-104); HDL CHOLESTEROL 66 MG/DL (35-60); LDL CHOLESTEROL 57 MG/DL (50-100); MAGNESIUM 1.8 MG/DL (1.5-2.4); PHOSPHORUS 3.5 MG/DL (2.3-4.5); POTASSIUM 3.3 MMOL/L (3.5-5.1); SODIUM 142 MMOL/L (135-145); TOTAL PROTEIN 7.3 G/DL (6.4-8.2); TRIGLYCERIDES 225 MG/DL (20-135); eGFR 39 ML/MIN
--- NOTE | 2020-07-16 06:30 | NUR ---
Problems reprioritized. Patient report given, questions answered & plan of care reviewed with Liss DUMONT and Sammie DUMONT.
[2020-07-16 06:35] LABS: TOTAL CARBON DIOXIDE 40.7 MMOL/L (24-32)
--- NOTE | 2020-07-16 06:42 | NUR ---
Rm. 3667MClifford. FYI Critical CO2 of 40.7, has decreased from yesterday value of 43.0. Sammie
[2020-07-16] MEDS: HYDROcodone/acetaminophen 10/325mg tab PO PRN ×2 (07:39→21:18)
[2020-07-16 08:00] VITALS: BP_SYST 147; BP_SYST 152; BP_SYST 163; BP_DIAS 75; BP_DIAS 76
[2020-07-16] MEDS: K and/or MAG REPLACEMENT MC SCH ×2 (08:00→20:00)
[2020-07-16 08:12] LABS: LARGE PLATELETS FEW; PLATELET ESTIMATE DECREASED; STOMATOCYTES 2+
[2020-07-16] MEDS: furosemide 40mg/4ml inj IV SCH ×2 (09:54→20:40)
[2020-07-16] MEDS: potassium Cl 20 mEq SR tablet PO PRN ×2 (09:56→21:20)
[2020-07-16] MEDS: levoTHYROXINE 75mcg tablet PO SCH (09:57)
[2020-07-16] MEDS: azithromycin 250mg tablet PO SCH (09:58)
[2020-07-16] MEDS: apixaban 5mg tablet PO SCH ×2 (09:59→20:40)
[2020-07-16] MEDS: CefTRIAXone/D5W-Rocephin 1gm 50 ML IV SCH (10:15)
--- NOTE | 2020-07-16 10:47 | NUR ---
pt requested something for anxiety. Paged
[2020-07-16] MEDS: magnesium hydroxide 30ml (MOM) UD suspension PO PRN (10:59)
[2020-07-16 11:00] VITALS: BP 136/60
[2020-07-16] MEDS: normal saline 1000ml 1,000 ML IV SCH (11:02)
[2020-07-16] MEDS ORDERED: bisacodyl 10mg suppository rectal RC ONE (11:50)
[2020-07-16] MEDS ORDERED: bisacodyl 5mg tablet.DR PO PRN (11:50)
--- NOTE | 2020-07-16 11:57 | NUR ---
New orders from Dr. Mckeon, Dulcolax supp, 10mg and PO PRN, Ativan 1mg tab PO Q4, Colace BID ordered
[2020-07-16] MEDS: LORazepam 1 MG tablet PO PRN (12:52)
[2020-07-16] MEDS: pregabalin 25mg capsule PO PRN (13:21)
--- NOTE | 2020-07-16 17:49 | NUR ---
Orientee documentation: I have reviewed and agree with interventions, assessments performed and documented by Sammie Pichardo. Orientee Medication Administration: For this medication-pass time frame, medication were reviewed, dispensed, administered and documented per hospital policy by Sammie PICHARDO.
[2020-07-16 18:00] VITALS: BP 143/113
--- NOTE | 2020-07-16 18:25 | NUR ---
Problems reprioritized. Patient report given, questions answered & plan of care reviewed with Candida DUMONT.
--- NOTE | 2020-07-16 18:31 | NUR ---
Patient in room PCU 3025. I have received report from Liss DUMONT and Sammie DUMONT and had the opportunity to ask questions and assume patient care.
[2020-07-16] MEDS: docusate sod 100mg capsule PO SCH (20:00)
[2020-07-16] MEDS: valacyclovir 500mg tablet PO SCH (20:40)
[2020-07-16] MEDS: lactobacillus rhamnosus 10,000 MMU CELLS/CAPSULE PO SCH (20:40)
[2020-07-16] MEDS: atorvastatin 20mg tablet PO SCH (20:40)
[2020-07-16 22:00] VITALS: BP 153/69
--- NOTE | 2020-07-16 22:34 | NUR ---
PAGER ID: [phone] MESSAGE: [phone] Nikkie Horton Admitted for chest pressure. Is currently having chest pain radiating to back and jaw. Blood pressure 193/76 and heart rate 105 in A fib. Getting a stat EKG now. Candida DUMONT ext [phone]
[2020-07-16] MEDS ORDERED: metoprolol tartrate 1mg/ml inj IV PRN (22:40)
[2020-07-16] MEDS ORDERED: aminophylline 250mg/10ml inj. IV PRN (22:40)
[2020-07-16] MEDS ORDERED: magnesium 2GM in 50ml NS 50 ML IV ONE ×2 (22:50→23:15)
[2020-07-16] MEDS ORDERED: nitroGLYCERIN 0.4mg SUBLingual tab SL PRN ×2 (22:50→23:10)
[2020-07-16] MEDS: nitroGLYCERIN 0.4mg SUBLingual tab SL PRN (22:59)
[2020-07-17] VITALS (7 sets, daily range): BP systolic 112–216; BP diastolic 62–106
[2020-07-17] MEDS: pregabalin 25mg capsule PO PRN ×2 (01:28→08:14)
[2020-07-17] MEDS: potassium Cl 20 mEq SR tablet PO PRN (01:28)
[2020-07-17] MEDS: methylPREDNISolone sod succ 125mg/2ml vial IV SCH ×4 (02:43→21:28)
[2020-07-17] MEDS: ipratropium/albuterol 3ml nebule NEB SCH ×6 (03:49→23:15)
[2020-07-17 05:20] LABS: HEMOGLOBIN 11.5 g/dl (12.0-16.0)
[2020-07-17 05:24] LABS: BASOPHILS % (AUTO) 0.2 % (0-1); EOSINOPHILS % (AUTO) 0 % (0-6); HEMATOCRIT 35.1 % (35.0-45.0); LYMPHOCYTES # (AUTO) 0.7 X10'3 (1.1-4.8); LYMPHOCYTES % (AUTO) 3.9 % (21-51); MEAN CORPUSCULAR HGB CONC 32.8 g/dL (33.0-36.5); MEAN CORPUSCULAR VOLUME 94.5 FL (78-98); MEAN PLATELET VOLUME 11.5 FL (7.4-10.4); MONOCYTES # (AUTO) 0.4 X10'3 (0-0.9); NEUTROPHILS # (AUTO) 17.9 X10'3 (1.8-7.7); NEUTROPHILS % (AUTO) 93.9 % (42-75); PLATELET COUNT 175 X10'3 (140-440); RED BLOOD COUNT 3.72 X10'6 (4.20-5.60); RED CELL DISTRIBUTION WIDTH 14.5 % (11.5-14.5); WHITE BLOOD COUNT 19.1 X10'3 (4.5-11.0)
[2020-07-17 05:36] LABS: ALANINE AMINOTRANSFERASE 14 U/L (12-78); ALBUMIN 3.2 G/DL (3.4-5.0); ALBUMIN/GLOBULIN RATIO 0.8 (1.1-1.5); ALKALINE PHOSPHATASE 42 IU/L (46-116); ANION GAP 10 (8-16); ASPARTATE AMINO TRANSFERASE 15 U/L (10-37); BILIRUBIN,TOTAL 0.2 MG/DL (0.1-1.0); BLOOD UREA NITROGEN 51 MG/DL (7-18); BUN/CREATININE RATIO 31.3 (6.6-38.0); CALCIUM 8.3 MG/DL (8.5-10.1); CHLORIDE 94 MMOL/L (99-107); CREATININE 1.63 MG/DL (0.40-0.90); GLUCOSE 205 MG/DL (70-104); MAGNESIUM 3.1 MG/DL (1.5-2.4); PHOSPHORUS 2.8 MG/DL (2.3-4.5); POTASSIUM 3.6 MMOL/L (3.5-5.1); SODIUM 138 MMOL/L (135-145); TOTAL CARBON DIOXIDE 33.6 MMOL/L (24-32); eGFR 30 ML/MIN
[2020-07-17] MEDS: HYDROcodone/acetaminophen 10/325mg tab PO PRN (05:54)
[2020-07-17] MEDS ORDERED: regadenoson 0.4mg/5ml syringe IV ONE (06:00)
--- NOTE | 2020-07-17 06:33 | NUR ---
Problems reprioritized. Patient report given, questions answered & plan of care reviewed with Liss DUMONT and Sammie DUMONT.
[2020-07-17] MEDS: normal saline 1000ml 1,000 ML IV SCH (07:00)
[2020-07-17 07:11] LABS: LARGE PLATELETS FEW; PLATELET ESTIMATE NORMAL
--- NOTE | 2020-07-17 07:56 | NUR ---
Patient in room PCU 3025. I have received report from Candida DUMONT and had the opportunity to ask questions and assume patient care. Patient is in bed, offers no complaints, will continue to monitor.
[2020-07-17] MEDS: docusate sod 100mg capsule PO SCH ×3 (08:00→21:28)
[2020-07-17] MEDS: K and/or MAG REPLACEMENT MC SCH ×2 (08:00→19:07)
[2020-07-17] MEDS: CefTRIAXone/D5W-Rocephin 1gm 50 ML IV SCH (08:13)
[2020-07-17] MEDS: furosemide 40mg/4ml inj IV SCH ×2 (08:13→21:27)
[2020-07-17] MEDS: apixaban 5mg tablet PO SCH ×2 (08:14→21:28)
[2020-07-17] MEDS: levoTHYROXINE 75mcg tablet PO SCH (08:15)
[2020-07-17] MEDS: azithromycin 250mg tablet PO SCH (08:15)
[2020-07-17] MEDS: lactobacillus rhamnosus 10,000 MMU CELLS/CAPSULE PO SCH ×2 (08:16→20:00)
--- NOTE | 2020-07-17 10:02 | NUR ---
Rm [id number], Leonela, Pt has pulled out multiple PIVs by thrashing, limited to hand could you come try to place one, thank you.
--- NOTE | 2020-07-17 10:13 | NUR ---
Patient returned to the floor from the unsuccessful stress test due to high blood pressure and a headache. Patient is back to bed and asking to speak to the MD as she would like to just go home. Will page .
--- NOTE | 2020-07-17 10:45 | NUR ---
Rm. 3025A, Clifford. pt. BP 183/86 after coming back from an unsuccessful Elizabeth. Pt. would like to go home. Sammie [phone]
--- NOTE | 2020-07-17 11:48 | NUR ---
spoke with Dr Mckeon regnitishing BP and request to go home, ordered 20mg hyd. IV X1
[2020-07-17] MEDS ORDERED: hydrALAZINE 20mg/ml inj. IV ONE (11:50)
[2020-07-17] MEDS ORDERED: LORazepam 2 mg/ml vial IV ONE (12:05)
--- NOTE | 2020-07-17 12:19 | NUR ---
1210- RT AT PATIENTS ROOM FOR 1100 SVN TX, PT CURRENTLY ON CAMMODE, RT WILL RETURN FOR SVN TX AT A LATER TIME. Addendum: 07/17/20 at 1221 by Mariann Sepulveda RT Amended: Links added.
[2020-07-17] MEDS: LORazepam 1 MG tablet PO PRN (13:09)
--- NOTE | 2020-07-17 15:50 | NUR ---
promotional table spacer PAGER ID: [phone] MESSAGE: Thomas 8069DClifford. Pt is having increasing confusion, and is difficult to keep awake, would you like to get a Stat ABG? Will page RT and place her back on Bipap. Thanks Liss [phone]
--- NOTE | 2020-07-17 15:55 | NUR ---
Rm 6103F, Clifford. Can you please come check the Bipap, it is making a strange sound. Thank you
[2020-07-17 16:16] LABS: ABG BASE EXCESS 10.9 mmol/L (-2.0-2.0); ABG HCO3 36.9 mmol/L (22.0-26.0); ABG OXYGEN SATURATION 94.4 % (94-97); ABG PO2 (T) 69.5 mmHg (75.0-100.0); ALLEN'S TEST POSITIVE; FCOHb 0.3 % (0.0-3.9); FLOW 2 L/min; FO2Hb 94.1 % (94-97); TOTAL HEMOGLOBIN 12.9 G/dl (12.0-16.0)
--- NOTE | 2020-07-17 16:23 | NUR ---
PAGER ID: [phone] MESSAGE: Thomas 4846UClifford. ABG results are in, RT said she did not need Bipap. Would you like to reduce or d/c the Ativan for anxiety as she may be sensitive to it?
--- NOTE | 2020-07-17 17:13 | NUR ---
unable to obtain orthostatic vitals Addendum: 07/17/20 at 1715 by Sammie Lira RN Amended: Links added.
--- NOTE | 2020-07-17 17:17 | NUR ---
Non administered the lexiscan medication as the patient will not be having the lexiscan
--- NOTE | 2020-07-17 18:20 | NUR ---
Orientee documentation: I have reviewed and agree with interventions, assessments performed and documented by Sammie DUMONT. Orientee Medication Administration: For this medication-pass time frame, medication were reviewed, dispensed, administered and documented per hospital policy by Sammie DUMONT.
--- NOTE | 2020-07-17 18:21 | NUR ---
Problems reprioritized. Patient report given, questions answered & plan of care reviewed with Xenia DUMONT.
--- NOTE | 2020-07-17 18:32 | NUR ---
Patient in room U 3025. I have received report from Liss DUMONT and had the opportunity to ask questions and assume patient care. Patient was awake and sitting up in bed during report. No acute distress noted.
--- NOTE | 2020-07-17 19:00 | NUR ---
Patient's family dropped off some clothing and belongings of the patient including some depends. I educated the patient about the hospital policy not supporting the use of depends, but she said that she wanted to use them anyway. The patient has been using them for incontinence but stated that she rarely soils them.
[2020-07-17] MEDS: HYDROcodone/acetaminophen 5mg/325mg tablet PO PRN (19:38)
[2020-07-17] MEDS: valacyclovir 500mg tablet PO SCH (21:28)
[2020-07-17] MEDS: atorvastatin 20mg tablet PO SCH (21:28)
--- NOTE | 2020-07-17 23:13 | NUR ---
Sent page to Dr Way: Patient Nikkie Horton 8536S. Patient has BP of 216/106. Received 1X dose of 20mg Hydralazine today. No current PRN to address BP. Could I please get a PRN order? Silvia DUMONT ext. [phone]
[2020-07-17] MEDS: hydrALAZINE 20mg/ml inj. IV PRN (23:51)
[2020-07-18] VITALS (16 sets, daily range): BP systolic 117–173; BP diastolic 51–88
[2020-07-18] MEDS: pregabalin 25mg capsule PO PRN ×2 (01:29→21:41)
[2020-07-18] MEDS: nitroGLYCERIN 0.4mg SUBLingual tab SL PRN (02:03)
--- NOTE | 2020-07-18 02:12 | NUR ---
Patient woke up and called complaining of chest heaviness that she would rate at a 7/10. She was given one dose on SL Nitro and her pain was relieved so no further doses required. Blood pressure stable. Will continue to monitor.
[2020-07-18] MEDS: HYDROcodone/acetaminophen 10/325mg tab PO PRN ×2 (03:22→22:38)
[2020-07-18] MEDS: normal saline 1000ml 1,000 ML IV SCH ×2 (03:25→22:42)
[2020-07-18] MEDS: ipratropium/albuterol 3ml nebule NEB SCH ×6 (03:45→23:00)
--- NOTE | 2020-07-18 04:50 | NUR ---
Orientee documentation: I have reviewed and agree with all interventions, assessments performed and documented by Silvia DUMONT. Orientee Medication Administration: For this medication-pass time frame, all medication were reviewed, dispensed, administered and documented per hospital policy by Silvia DUMONT.
[2020-07-18 06:04] LABS: BASOPHILS % (AUTO) 0.1 % (0-1); EOSINOPHILS % (AUTO) 0 % (0-6); HEMATOCRIT 36.2 % (35.0-45.0); HEMOGLOBIN 11.9 g/dl (12.0-16.0); LYMPHOCYTES # (AUTO) 0.8 X10'3 (1.1-4.8); LYMPHOCYTES % (AUTO) 4.1 % (21-51); MEAN CORPUSCULAR HEMOGLOBIN 30.9 PG (27.0-31.0); MEAN CORPUSCULAR HGB CONC 32.9 g/dL (33.0-36.5); MEAN PLATELET VOLUME 11.4 FL (7.4-10.4); MONOCYTES # (AUTO) 0.9 X10'3 (0-0.9); MONOCYTES % (AUTO) 4.6 % (2-12); NEUTROPHILS # (AUTO) 18.2 X10'3 (1.8-7.7); NEUTROPHILS % (AUTO) 91.2 % (42-75); PLATELET COUNT 220 X10'3 (140-440); RED BLOOD COUNT 3.86 X10'6 (4.20-5.60); RED CELL DISTRIBUTION WIDTH 14.8 % (11.5-14.5); WHITE BLOOD COUNT 19.9 X10'3 (4.5-11.0)
[2020-07-18 06:13] LABS: ALANINE AMINOTRANSFERASE 12 U/L (12-78); ALBUMIN 3.3 G/DL (3.4-5.0); ALBUMIN/GLOBULIN RATIO 0.9 (1.1-1.5); ALKALINE PHOSPHATASE 45 IU/L (46-116); ANION GAP 8 (8-16); ASPARTATE AMINO TRANSFERASE 8 U/L (10-37); BILIRUBIN,TOTAL 0.3 MG/DL (0.1-1.0); BLOOD UREA NITROGEN 58 MG/DL (7-18); BUN/CREATININE RATIO 47.5 (6.6-38.0); CALCIUM 8.2 MG/DL (8.5-10.1); CHLORIDE 98 MMOL/L (99-107); CREATININE 1.22 MG/DL (0.40-0.90); GLUCOSE 165 MG/DL (70-104); MAGNESIUM 2.8 MG/DL (1.5-2.4); PHOSPHORUS 2.6 MG/DL (2.3-4.5); POTASSIUM 3.6 MMOL/L (3.5-5.1); SODIUM 140 MMOL/L (135-145); TOTAL CARBON DIOXIDE 33.7 MMOL/L (24-32); eGFR 42 ML/MIN
--- NOTE | 2020-07-18 06:25 | NUR ---
Problems reprioritized. Patient report given, questions answered & plan of care reviewed with Jennifer DUMONT.
--- NOTE | 2020-07-18 06:26 | NUR ---
Patient in room PCU 3020A. I have received report from Polly DUMONT and had the opportunity to ask questions and assume patient care.
[2020-07-18 06:50] LABS: LARGE PLATELETS FEW; PLATELET ESTIMATE NORMAL
--- NOTE | 2020-07-18 07:35 | NUR ---
Notified by nurses aide that patient was c/o 7/10 chest pain radiating to jaw, went in to assess patient and administered 1 dose of nitroglycerin, chest pain subsided, no additional dose given, will continue to monitor closely.
[2020-07-18] MEDS: furosemide 40mg/4ml inj IV SCH ×2 (07:42→21:40)
[2020-07-18] MEDS: CefTRIAXone/D5W-Rocephin 1gm 50 ML IV SCH (07:42)
[2020-07-18] MEDS: methylPREDNISolone sod succ/PF 40mg inj. IV SCH ×3 (07:42→15:18)
[2020-07-18] MEDS: levoTHYROXINE 75mcg tablet PO SCH (07:48)
[2020-07-18] MEDS: azithromycin 250mg tablet PO SCH (07:49)
[2020-07-18] MEDS: apixaban 5mg tablet PO SCH ×2 (07:49→21:41)
[2020-07-18] MEDS: lactobacillus rhamnosus 10,000 MMU CELLS/CAPSULE PO SCH ×2 (07:49→21:41)
[2020-07-18] MEDS: K and/or MAG REPLACEMENT MC SCH ×2 (07:50→19:19)
[2020-07-18] MEDS: hydrALAZINE 20mg/ml inj. IV PRN (08:05)
--- NOTE | 2020-07-18 08:40 | NUR ---
Sent a page to Dr Mike fernandez PAGER ID: [phone] MESSAGE: Jennifer DUMONT [phone], E Clifford, pt is agreeable to Elizabeth this AM, has been NPO since midnight, had on episode of chest pain this AM, relieved with nitro, do you want to re order one? thanks Addendum: 07/18/20 at 0849 by Kiana Vilchis RN Spoke with Dr Mckeon via telephone, received orders for Elizabeth scan, sent a page to [facility], will continue to monitor the patient closely.
[2020-07-18] MEDS ORDERED: nitroGLYCERIN 0.4mg SUBLingual tab SL PRN (08:45)
[2020-07-18] MEDS ORDERED: metoprolol tartrate 1mg/ml inj IV PRN (08:45)
[2020-07-18] MEDS ORDERED: aminophylline 250mg/10ml inj. IV PRN (08:45)
[2020-07-18] MEDS ORDERED: regadenoson 0.4mg/5ml syringe IV PRN (08:45)
--- NOTE | 2020-07-18 10:18 | NUR ---
left unit to go down to nuc med for stress test
--- NOTE | 2020-07-18 10:32 | NUR ---
Spoke with patients daughter, Tatum, and updated her on the current plan of care. Tatum is aware that her mother is down at a stress test right now but states that her mom wants to come home today. Will continue to update the family and monitor the patient closely. Addendum: 07/18/20 at 1056 by Kiana Vilchis RN Tatum [phone]
--- NOTE | 2020-07-18 10:55 | NUR ---
Spoke with patients daughter, Estelita at [phone], and updated her on the current plan of care. Estelita is aware that her mother is down at a stress test right now but states that her mom wants to come home today. Will continue to update the family and monitor the patient closely.
[2020-07-18] MEDS: diltiazem CD 180mg cap (once-daily) PO SCH (12:06)
[2020-07-18] MEDS: LORazepam 0.5 MG tablet PO PRN (12:06)
[2020-07-18] MEDS: HYDROcodone/acetaminophen 5mg/325mg tablet PO PRN (12:58)
--- NOTE | 2020-07-18 15:46 | NUR ---
Sent a page to Dr Mckeon re PAGER ID: [phone] MESSAGE: Jennifer DUMONT [phone] 3025A E Horton, elizabeth results not back yet, can I feed her? If (+) stress test pt states she does not want intervention, states she really wants to go home, please advise, thanks Addendum: 07/18/20 at 1551 by Kiana Vilchis RN Spoke to Dr Mckeon via telephone, received orders for heart healthy diet, RN will call down to radiology to see why the Elizabeth results are taking so long to result, reiterated to MD that patient told RN, "I want to go home, I want to at home" and that the patient is tearful and depressed. MD aware, will continue to monitor the patient closely.
--- NOTE | 2020-07-18 16:05 | NUR ---
Called down to radiology to see why this patient NM Elizabeth scan isn't read yet, radiology personnel stated that they are behind but they will get to it today. Will continue to monitor the patient closely.
--- NOTE | 2020-07-18 16:55 | NUR ---
Called patients daughter Ally and updated her on the patients plan of care.
--- NOTE | 2020-07-18 17:10 | NUR ---
Sent a page to Dr Mike fernandez PAGER ID: [phone] MESSAGE: Jennifer DUMONT [phone] 3025A, YUSEF Kirk results negative, thanks
--- NOTE | 2020-07-18 18:15 | NUR ---
Problems reprioritized. Patient report given, questions answered & plan of care reviewed with Billy DUMONT and Pema DUMONT.
--- NOTE | 2020-07-18 18:16 | NUR ---
Patient in room PCU 3024G. I have received report from TIM Rodriguez and had the opportunity to ask questions and assume patient care. Patient asleep for bedside report, on 2L nasal cannula, saline locked and is stable at this time. Will continue to monitor closely.
--- NOTE | 2020-07-18 18:42 | NUR ---
Patient in room PCU 3025. I have received report from Jennifer DUMONT and had the opportunity to ask questions and assume patient care. Patient was resting comfortably during report.
[2020-07-18] MEDS: atorvastatin 20mg tablet PO SCH (21:41)
[2020-07-18] MEDS: docusate sod 100mg capsule PO SCH (21:41)
[2020-07-18] MEDS: valacyclovir 500mg tablet PO SCH (21:41)
--- NOTE | 2020-07-19 | NUR ---
Patient in room PCU 3025. I have received report from Silvia DUMONT and had the opportunity to ask questions and assume patient care.
--- NOTE | 2020-07-19 | NUR ---
Problems reprioritized. Patient report given, questions answered & plan of care reviewed with TIM LEMON.
[2020-07-19 02:00] VITALS: BP 149/72
[2020-07-19] MEDS: HYDROcodone/acetaminophen 10/325mg tab PO PRN ×2 (02:54→07:30)
[2020-07-19] MEDS: ipratropium/albuterol 3ml nebule NEB SCH ×3 (03:00→12:06)
[2020-07-19 05:07] LABS: BASOPHILS % (AUTO) 0.1 % (0-1); EOSINOPHILS % (AUTO) 0 % (0-6); HEMATOCRIT 32.8 % (35.0-45.0); HEMOGLOBIN 10.7 g/dl (12.0-16.0); LYMPHOCYTES # (AUTO) 0.6 X10'3 (1.1-4.8); LYMPHOCYTES % (AUTO) 4.4 % (21-51); MEAN CORPUSCULAR HEMOGLOBIN 30.7 PG (27.0-31.0); MEAN CORPUSCULAR HGB CONC 32.7 g/dL (33.0-36.5); MEAN CORPUSCULAR VOLUME 93.8 FL (78-98); MONOCYTES # (AUTO) 0.9 X10'3 (0-0.9); MONOCYTES % (AUTO) 6.9 % (2-12); NEUTROPHILS # (AUTO) 11.1 X10'3 (1.8-7.7); NEUTROPHILS % (AUTO) 88.6 % (42-75); PLATELET COUNT 201 X10'3 (140-440); RED CELL DISTRIBUTION WIDTH 14.9 % (11.5-14.5); WHITE BLOOD COUNT 12.6 X10'3 (4.5-11.0)
[2020-07-19 05:32] LABS: ALANINE AMINOTRANSFERASE 18 U/L (12-78); ALBUMIN 3.1 G/DL (3.4-5.0); ALKALINE PHOSPHATASE 39 IU/L (46-116); ANION GAP 5 (8-16); ASPARTATE AMINO TRANSFERASE 20 U/L (10-37); BILIRUBIN,TOTAL 0.4 MG/DL (0.1-1.0); BLOOD UREA NITROGEN 55 MG/DL (7-18); BUN/CREATININE RATIO 40.7 (6.6-38.0); CALCIUM 7.7 MG/DL (8.5-10.1); CHLORIDE 101 MMOL/L (99-107); CREATININE 1.35 MG/DL (0.40-0.90); GLUCOSE 162 MG/DL (70-104); MAGNESIUM 2.7 MG/DL (1.5-2.4); PHOSPHORUS 3.6 MG/DL (2.3-4.5); POTASSIUM 3.4 MMOL/L (3.5-5.1); SODIUM 141 MMOL/L (135-145); TOTAL CARBON DIOXIDE 35.1 MMOL/L (24-32); TOTAL PROTEIN 6.3 G/DL (6.4-8.2); eGFR 38 ML/MIN
[2020-07-19 06:00] VITALS: BP 147/72
--- NOTE | 2020-07-19 06:27 | NUR ---
Problems reprioritized. Patient report given, questions answered & plan of care reviewed with Justine DUMONT.
[2020-07-19 06:35] LABS: LARGE PLATELETS FEW; PLATELET ESTIMATE NORMAL
--- NOTE | 2020-07-19 06:37 | NUR ---
Patient in room PCU 3025. I have received report from Candido DUMONT and had the opportunity to ask questions and assume patient care.
[2020-07-19] MEDS: docusate sod 100mg capsule PO SCH (07:30)
[2020-07-19] MEDS: apixaban 5mg tablet PO SCH (07:30)
[2020-07-19] MEDS: diltiazem CD 180mg cap (once-daily) PO SCH (07:30)
[2020-07-19] MEDS: levoTHYROXINE 75mcg tablet PO SCH (07:30)
[2020-07-19] MEDS: azithromycin 250mg tablet PO SCH (07:31)
[2020-07-19] MEDS: furosemide 40mg/4ml inj IV SCH (07:31)
[2020-07-19] MEDS: CefTRIAXone/D5W-Rocephin 1gm 50 ML IV SCH (07:31)
[2020-07-19] MEDS: lactobacillus rhamnosus 10,000 MMU CELLS/CAPSULE PO SCH (07:31)
[2020-07-19] MEDS ORDERED: methylPREDNISolone sod succ/PF 40mg inj. IV SCH (08:00)
[2020-07-19] MEDS: K and/or MAG REPLACEMENT MC SCH (08:00)
[2020-07-19] MEDS ORDERED: potassium CL 10mEq/100ml bag 100 ML IV PRN (09:50)
[2020-07-19] MEDS ORDERED: potassium Cl 20 mEq SR tablet PO PRN ×2 (09:50)
--- NOTE | 2020-07-19 09:50 | NUR ---
PAGER ID: [phone] MESSAGE: [phone] Nikkie Horton: Pt K is 3.4, no orders for K replacement, would you like to start K replacement protocol? thanks uli [phone]
--- NOTE | 2020-07-19 09:52 | NUR ---
received orders to start K replacement per dr. garcía
[2020-07-19 11:00] VITALS: BP 183/72
--- NOTE | 2020-07-19 12:28 | NUR ---
PAGER ID: [phone] MESSAGE: [id number] Nikkie Horton: YUSEF BP is elevated at 183/72 hr 72, pt states she is excited to be discharged. thanks uli [phone]
[2020-07-19 13:00] VITALS: BP 166/78
[2020-07-19] MEDS: LORazepam 0.5 MG tablet PO PRN (13:11)
[2020-07-19] MEDS ORDERED: LACT1CAP26 PO (13:56)
[2020-07-19] MEDS ORDERED: CEFD300C3 PO (13:56)
[2020-07-19] MEDS ORDERED: DILT180C66 PO (13:56)
--- NOTE | 2020-07-19 15:37 | NUR ---
pt is stable for discharge per md orders, discharge instructions reviewed w/ pt and daughter over the phone and all questions answered, scheduled appt with Dr. garcia on 08/03/20 @ 1320,new med prescription called in to [facility] in [place], tele monitor removed and returned, piv dc'ed intact, clean dry dressing in place, pt discharges to home @ 1530, wheeled down to lobby w/ hospital staff w/ home O2 to private vehicle with daughter, all belongings w/ pt at time of discharge
--- NOTE | 2020-07-20 13:44 | NUR ---
Case Management DC follow up: Spoke with pt & pt daughter via telephone. Status post: SOB, CP/pressure r/t advanced COPD. reports:"really good, but been having anxiety" pt daughter states she is "eating well". Went over breathing exercises. pt also noted that she is on 2L of O2 / and has been keeping it 98%. Went over DC packet instructions, pt to keep O2 around 90% according to Dr coley r/t advanced COPD. pt agrees to reiterate safe Sat levels & managing high BP w/PCP, pt BP 165/70 this AM per pt. Denies: acute/continuous cp, emergent SOB, acute general pain, resp distress, N/V, vertigo, sycope episodes, CLEMENTS blurry vision, abd pain/distension, diarrhea, bladder pain, dysuria, polyuria, hematuria, retention, urgency, unexplained bleeding/bruising,fever. Pt does states she is constipated, but has stool softeners. Went over orthostatic hypotension protocol as precaution r/t new medications.Verbalizes understanding of s/s that would warrant 08-10/ER visit for evaluation. Verbalizes understanding of new Rx: Cefdinir, cardizem, culturelle, why prescribed, resumes current Rx as ordered, denies ase r/t polypharmacy. Acknowledges need to schedule/keep follow up appts w/PCP/Rachel pt agrees to call to set up appt, Dr Trores 08/03/20. Special Certificate Dictator/Asael as needed. HHS/Assured assigned to pt. Verbalizes compliance w/DC aftercare. Needs met, questions answered at DC, no further questions r/t post status DC at this time.
== END 2020-07-19 16:03 | disposition home health service (06) | DRG 291 ==
LOC: ER 10:59 → ED HOLD 14:42 → PCU 3S 15:17
PROVIDERS: ADMIT Family Medicine; ATTEND Family Medicine
PROC: 4A02XM4 Measurement of Cardiac Total Activity, External Approach (ICD-10-PCS; principal; 2020-07-18)
PROC: 3E033HZ Introduction of Radioactive Substance into Peripheral Vein, Percutaneous Approach (ICD-10-PCS; 2020-07-18)
DX: I11.0 Hypertensive heart disease with heart failure (principal); J96.90 Respiratory failure, unspecified, unspecified whether with hypoxia or hypercapnia; J44.1 Chronic obstructive pulmonary disease with (acute) exacerbation; I47.2 Ventricular tachycardia; E87.2 Acidosis; I50.33 Acute on chronic diastolic (congestive) heart failure; T46.0X5A Adverse effect of cardiac-stimulant glycosides and drugs of similar action, initial encounter; I48.91 Unspecified atrial fibrillation; G62.9 Polyneuropathy, unspecified; Z85.841 Personal history of malignant neoplasm of brain; Z85.118 Personal history of other malignant neoplasm of bronchus and lung; I27.20 Pulmonary hypertension, unspecified; E03.9 Hypothyroidism, unspecified; Z79.890 Hormone replacement therapy; Z66 Do not resuscitate; D72.829 Elevated white blood cell count, unspecified; G20 Parkinson's disease; I25.2 Old myocardial infarction; Z79.01 Long term (current) use of anticoagulants; Z80.8 Family history of malignant neoplasm of other organs or systems; Z87.891 Personal history of nicotine dependence; Z90.710 Acquired absence of both cervix and uterus
CPT/HCPCS: 36415; 36600; 71045; 78451; 78453; 80053; 80061; 80162; 81001; 82803; 83036; 83605; 83690; 83735; 83880; 84100; 84443; 84484; 85018; 85025; 87040; 87081; 92508; 92616; 93005; 93017; 93306; 94640; 94660; 94760; 96361; 96374; 96375; 97110; 97116; 97161; 97530; 99285; A9500; C9113; G0378; J0360; J0696; J1162; J1940; J2785; J2920; J2930; J3475; J7030

== ENCOUNTER 2020-09-15 12:42 | Emergency (ER) | payer MEDICARE, MEDICAID ==
[~2020-09-15] VITALS: Ht 152.4 cm; Wt 62.0 kg
[~2020-09-15 12:42] MED LIST changes: -ASPI-1265 PO; +DILT180C66 PO; -HYDR-3972; +HYDR-3972 PO; +LACT1CAP26 PO; -POTA10TA10 PO
[2020-09-15 14:14] LABS: CLARITY,URINE CLEAR (Clear); COLOR,URINE STRAW (Yellow); GLUCOSE, URINE NEGATIVE (Neg); KETONES,URINE NEGATIVE (Neg); LEUKOCYTE ESTERASE ,URINE NEGATIVE (Neg); NITRITES, URINE NEGATIVE (Neg); OCCULT BLOOD,URINE NEGATIVE (Neg); PROTEIN,URINE NEGATIVE (Neg); UROBILINOGEN,URINE 0.2 E.U/dL (0.2-1.0)
[2020-09-15 14:18] LABS: UA COLLECTION TYPE CLN CATCH MIDSTREAM
[2020-09-15 14:35] VITALS: BP 137/64
== END 2020-09-15 15:47 | disposition home or self-care (01) ==
LOC: ER 12:42
DX: R30.0 Dysuria (principal); G62.9 Polyneuropathy, unspecified; I48.91 Unspecified atrial fibrillation; I50.9 Heart failure, unspecified; I11.0 Hypertensive heart disease with heart failure; J44.9 Chronic obstructive pulmonary disease, unspecified; Z90.710 Acquired absence of both cervix and uterus; Z98.890 Other specified postprocedural states; Z88.8 Allergy status to other drugs, medicaments and biological substances; Z79.01 Long term (current) use of anticoagulants; Z79.899 Other long term (current) drug therapy
CPT/HCPCS: 81003; 99283

== ENCOUNTER 2020-09-18 11:06 | Inpatient (IN) | payer MEDICARE, MEDICAID ==
[2020-09-18] VITALS (10 sets, daily range): BP systolic 112–163; BP diastolic 61–88
[~2020-09-18] VITALS: Ht 152.4 cm; Wt 62.3 kg
[2020-09-18 12:08] LABS: BASOPHILS % (AUTO) 0.5 % (0-1); EOSINOPHILS # (AUTO) 0.1 X10'3 (0-0.9); EOSINOPHILS % (AUTO) 0.7 % (0-6); HEMATOCRIT 25.1 % (35.0-45.0); LYMPHOCYTES # (AUTO) 0.7 X10'3 (1.1-4.8); LYMPHOCYTES % (AUTO) 7.7 % (21-51); MEAN CORPUSCULAR HEMOGLOBIN 28.6 PG (27.0-31.0); MEAN CORPUSCULAR HGB CONC 31.9 g/dL (33.0-36.5); MEAN CORPUSCULAR VOLUME 89.7 FL (78-98); MEAN PLATELET VOLUME 10.3 FL (7.4-10.4); MONOCYTES # (AUTO) 0.8 X10'3 (0-0.9); MONOCYTES % (AUTO) 9.2 % (2-12); NEUTROPHILS # (AUTO) 7.5 X10'3 (1.8-7.7); NEUTROPHILS % (AUTO) 81.9 % (42-75); PLATELET COUNT 221 X10'3 (140-440); RED BLOOD COUNT 2.79 X10'6 (4.20-5.60); RED CELL DISTRIBUTION WIDTH 15.7 % (11.5-14.5); WHITE BLOOD COUNT 9.2 X10'3 (4.5-11.0)
[2020-09-18 12:29] LABS: ALANINE AMINOTRANSFERASE 17 U/L (12-78); ALBUMIN 3.2 G/DL (3.4-5.0); ALBUMIN/GLOBULIN RATIO 0.8 (1.1-1.5); ALKALINE PHOSPHATASE 65 IU/L (46-116); ANION GAP 0 (8-16); ASPARTATE AMINO TRANSFERASE 14 U/L (10-37); BILIRUBIN,TOTAL 0.3 MG/DL (0.1-1.0); BLOOD UREA NITROGEN 21 MG/DL (7-18); CALCIUM 8.8 MG/DL (8.5-10.1); CHLORIDE 103 MMOL/L (99-107); CREATININE 0.84 MG/DL (0.40-0.90); GLUCOSE 107 MG/DL (70-104); POTASSIUM 3.1 MMOL/L (3.5-5.1); SODIUM 144 MMOL/L (135-145); TOTAL PROTEIN 7.1 G/DL (6.4-8.2); eGFR 65 ML/MIN
[2020-09-18 12:32] LABS: TOTAL CARBON DIOXIDE 40.9 MMOL/L (24-32)
[2020-09-18] MEDS ORDERED: normal saline 1000ML IV soln IVB ONE (13:40)
[2020-09-18] MEDS ORDERED: pantoprazole 40MG/NS 100ML BAG 100 ML IV ONE (13:46)
[2020-09-18] MEDS ORDERED: piperacillin/tazo 3.375gm/50ml 50 ML IV ONE (13:50)
[2020-09-18] MEDS ORDERED: magnesium hydroxide 30ml (MOM) UD suspension PO PRN (13:55)
[2020-09-18] MEDS ORDERED: ondansetron/PF 4mg/2ml inj IV PRN (13:55)
[2020-09-18] MEDS ORDERED: mag hydrox/Alum hydrox/simeth 30ml oral suspension PO PRN (13:55)
[2020-09-18] MEDS ORDERED: acetaminophen 325mg tablet PO PRN (13:55)
[2020-09-18 14:01] LABS: ABG BASE EXCESS 15.6 mmol/L (-2.0-2.0); ABG HCO3 41.9 mmol/L (22.0-26.0); ABG OXYGEN SATURATION 98.3 % (94-97); ABG PCO2 (T) 62.5 mmHg (32.0-45.0); ABG PO2 (T) 122.2 mmHg (75.0-100.0); ALLEN'S TEST POSITIVE; FCOHb 0.3 % (0.0-3.9); FMetHb 0.1 % (0.0-1.5); FO2Hb 97.9 % (94-97); PATIENT TEMPERATURE 36.5; TOTAL HEMOGLOBIN 8.9 G/dl (12.0-16.0)
[2020-09-18] MEDS ORDERED: CARV6.253 PO (14:09)
[2020-09-18] MEDS ORDERED: HYDR25TA4 PO (14:09)
[2020-09-18] MEDS ORDERED: OLME40TA18 PO (14:09)
[2020-09-18] MEDS ORDERED: DABI150C PO (14:09)
[2020-09-18] MEDS ORDERED: DIGO250T PO (14:09)
[2020-09-18] MEDS ORDERED: DILT180C90 PO (14:09)
[2020-09-18] MEDS ORDERED: DOCU100C40 PO (14:32)
[2020-09-18] MEDS ORDERED: ACET325T55 PO (14:32)
[2020-09-18] MEDS ORDERED: FURO20TA4 PO (14:32)
[2020-09-18] MEDS ORDERED: LACT1TAB21 PO (14:32)
--- NOTE | 2020-09-18 15:12 | NUR ---
Patient returns from CT. Respiratory paged to set up bipap.
[2020-09-18] MEDS ORDERED: ATOR20TA66 PO (16:34)
--- NOTE | 2020-09-18 17:27 | NUR ---
PT GAVE CONSENT TO UPDATE DAUGHTER ON STATUS. IT WAS PROVIDED.
[2020-09-18 17:41] LABS: ABG BASE EXCESS 0.4 mmol/L (-2.0-2.0); ABG HCO3 25.7 mmol/L (22.0-26.0); ABG OXYGEN SATURATION 98.9 % (94-97); ABG PCO2 (T) 44.8 mmHg (32.0-45.0); ABG PO2 (T) 147.6 mmHg (75.0-100.0); ALLEN'S TEST POSITIVE; FCOHb 0.1 % (0.0-3.9); FMetHb 0.1 % (0.0-1.5); FO2Hb 98.7 % (94-97); TOTAL HEMOGLOBIN 8.2 G/dl (12.0-16.0)
[2020-09-18 17:53] LABS: HEMOGLOBIN 7.6 g/dl (12.0-16.0); MEAN CORPUSCULAR HEMOGLOBIN 28.7 PG (27.0-31.0); MEAN CORPUSCULAR HGB CONC 31.9 g/dL (33.0-36.5); MEAN PLATELET VOLUME 10.1 FL (7.4-10.4); PLATELET COUNT 226 X10'3 (140-440); RED BLOOD COUNT 2.67 X10'6 (4.20-5.60); RED CELL DISTRIBUTION WIDTH 15.7 % (11.5-14.5); WHITE BLOOD COUNT 7.8 X10'3 (4.5-11.0)
[2020-09-18] MEDS ORDERED: MIDAZolam 5mg/5ml vial ONE (17:55)
[2020-09-18] MEDS ORDERED: LIDOcaine Viscous 15ml cup ONE (17:55)
[2020-09-18] MEDS ORDERED: fentaNYL/PF 50MCG/1 ML 2ML syringe ONE (17:55)
--- NOTE | 2020-09-18 18:04 | NUR ---
Patient in GI Lab
--- NOTE | 2020-09-18 18:54 | NUR ---
PT REMAINS IN GI LAB. 1 UNIT OF PRBCS IS READY IN LAB.
--- NOTE | 2020-09-18 19:07 | NUR ---
Pt returned from GI lab. TIM Chruch reports pt used versed 1 mg and was on 5 liters supp o2 for the procedure with sats 99%. Pt a&ox4. awaiting blood transfusion.
--- NOTE | 2020-09-18 19:33 | NUR ---
Blood Transfusion of 1 u prbc started. Pt sitting at edge of bed with stable vs. Cpap restarted with f40% fio2.
[2020-09-18] MEDS: albuterol 2.5 MG/3 ML nebule NEB SCH (19:53)
[2020-09-18 19:54] LABS: OCCULT BLOOD STOOL POSITIVE (Neg)
[2020-09-18] MEDS: budesonide 0.5mg/2ml UD nebule IH SCH (19:54)
--- NOTE | 2020-09-18 20:04 | NUR ---
Patient complains of increasing SOB after starting blood transfusion. Blood transfusion stopped and Dr. Leslie garcia.
[2020-09-18] MEDS: HYDROcodone/acetaminophen 10/325mg tab PO PRN (20:24)
[2020-09-18] MEDS: docusate sod 100mg capsule PO SCH (20:24)
[2020-09-18] MEDS: carvedilol 6.25mg tablet PO SCH (20:24)
[2020-09-18] MEDS: lactobacillus rhamnosus 10,000 MMU CELLS/CAPSULE PO SCH (20:25)
--- NOTE | 2020-09-18 20:50 | NUR ---
Spoke to Dr. Nelson about patient and her condition. She improved after her nebulizer and is now breathing comfortably. Blood transfusion was resumed. Dr. Nelson states we can repeat ABG and CXR if her work of breathing worsens again.
[2020-09-18] MEDS: pramipexole 0.25mg tablet PO SCH (21:49)
[2020-09-18] MEDS: pregabalin 25mg capsule PO PRN (21:49)
[2020-09-18] MEDS: valacyclovir 500mg tablet PO SCH (23:27)
--- NOTE | 2020-09-18 23:30 | NUR ---
video control operator report from Jhoana DUMONT ER, she states that she got report herself about 25 minutes prior. had opportunity to ask questions but, limited depth of answers were possible because of limited time with pt. awaiting arrival to floor.
--- NOTE | 2020-09-18 23:38 | NUR ---
pagged resp for tx bart . labs drawn for hemogram and final troponin
[2020-09-18 23:46] LABS: HEMATOCRIT 26.4 % (35.0-45.0); HEMOGLOBIN 8.7 g/dl (12.0-16.0); MEAN CORPUSCULAR HGB CONC 32.9 g/dL (33.0-36.5); MEAN CORPUSCULAR VOLUME 91.4 FL (78-98); MEAN PLATELET VOLUME 10.7 FL (7.4-10.4); PLATELET COUNT 216 X10'3 (140-440); RED BLOOD COUNT 2.89 X10'6 (4.20-5.60); RED CELL DISTRIBUTION WIDTH 15.2 % (11.5-14.5); WHITE BLOOD COUNT 11.4 X10'3 (4.5-11.0)
--- NOTE | 2020-09-18 23:51 | NUR ---
FINAL TROP DRAWN RESP ASSSESSED PT . STATES PATIENT IS STABLE AND CAN BE MOVED TO PCU PRIOR TO BREATHING TREATMENT. RESP RATE AT 22 O2 SATS AT 98 % ON 4 L OF O2 PER NC .
[2020-09-18] MEDS: ipratropium/albuterol 3ml nebule IH PRN (23:56)
[2020-09-19] VITALS: BP 156/84
--- NOTE | 2020-09-19 | NUR ---
pt arrived to floor with all belongings, tele placed, oriented to floor, call light placed in reach, VS stable, RT at bedside for treatment.
[2020-09-19 02:00] VITALS: BP 155/66
[2020-09-19] MEDS: ipratropium/albuterol 3ml nebule IH PRN ×2 (04:33→06:54)
[2020-09-19] MEDS: LORazepam 0.5 MG tablet PO PRN (04:43)
[2020-09-19 06:00] VITALS: BP 161/71
--- NOTE | 2020-09-19 06:00 | NUR ---
Problems reprioritized. Patient report given, questions answered & plan of care reviewed with Siomara DUMONT.
--- NOTE | 2020-09-19 06:30 | NUR ---
Patient in room PCU 3028. I have received report from TIM Dunbar and had the opportunity to ask questions and assume patient care.
[2020-09-19] MEDS: albuterol 2.5 MG/3 ML nebule NEB SCH ×4 (06:54→19:38)
[2020-09-19 06:58] LABS: BASOPHILS % (AUTO) 0.5 % (0-1); EOSINOPHILS # (AUTO) 0.1 X10'3 (0-0.9); EOSINOPHILS % (AUTO) 0.9 % (0-6); HEMATOCRIT 29.6 % (35.0-45.0); HEMOGLOBIN 9.6 g/dl (12.0-16.0); LYMPHOCYTES # (AUTO) 0.8 X10'3 (1.1-4.8); LYMPHOCYTES % (AUTO) 8.9 % (21-51); MEAN CORPUSCULAR HEMOGLOBIN 29.4 PG (27.0-31.0); MEAN CORPUSCULAR HGB CONC 32.5 g/dL (33.0-36.5); MEAN CORPUSCULAR VOLUME 90.4 FL (78-98); MEAN PLATELET VOLUME 10.4 FL (7.4-10.4); MONOCYTES # (AUTO) 0.7 X10'3 (0-0.9); MONOCYTES % (AUTO) 7.5 % (2-12); NEUTROPHILS # (AUTO) 7.1 X10'3 (1.8-7.7); NEUTROPHILS % (AUTO) 82.2 % (42-75); PLATELET COUNT 218 X10'3 (140-440); RED BLOOD COUNT 3.28 X10'6 (4.20-5.60); RED CELL DISTRIBUTION WIDTH 15.7 % (11.5-14.5); WHITE BLOOD COUNT 8.7 X10'3 (4.5-11.0)
[2020-09-19 07:05] LABS: ALBUMIN 3.2 G/DL (3.4-5.0); ANION GAP 5 (8-16); BLOOD UREA NITROGEN 21 MG/DL (7-18); BUN/CREATININE RATIO 24.1 (6.6-38.0); CALCIUM 8.4 MG/DL (8.5-10.1); CHLORIDE 104 MMOL/L (99-107); CREATININE 0.87 MG/DL (0.40-0.90); GLUCOSE 102 MG/DL (70-104); POTASSIUM 3.3 MMOL/L (3.5-5.1); SODIUM 147 MMOL/L (135-145); TOTAL CARBON DIOXIDE 38.5 MMOL/L (24-32); eGFR 62 ML/MIN
--- NOTE | 2020-09-19 07:14 | NUR ---
notified. PAGER ID: [phone] MESSAGE: Re: Nikkie Horton. [id number]. Patient extremely anxious, feels SOB. .5mg of Ativan PO ordered but ineffective. Tripoding all morning though normal saturations (Placed on BIPAP by RT). C/O of chest pain since AM, Normal EKG this am. Siomara 54Mine Addendum: 09/19/20 at 1237 by Siomara Lazaro RN Dr. aponte ordered 40mg of Lasix one time and 1mg of morphine to be given IV. Patient responded well to both treatments; remains off BIPAP at this time.
[2020-09-19] MEDS ORDERED: morphine 2 MG/ML inj. syringe IV ONE ×2 (07:30→07:45)
[2020-09-19] MEDS ORDERED: furosemide 40mg/4ml inj IV ONE (07:30)
[2020-09-19] MEDS: docusate sod 100mg capsule PO SCH ×2 (08:00→20:00)
[2020-09-19] MEDS: budesonide 0.5mg/2ml UD nebule IH SCH ×2 (08:28→19:38)
[2020-09-19] MEDS: atorvastatin 20mg tablet PO SCH (09:37)
[2020-09-19] MEDS: carvedilol 6.25mg tablet PO SCH ×2 (09:38→20:47)
[2020-09-19] MEDS: losartan 50mg tablet PO SCH (09:38)
[2020-09-19] MEDS: lactobacillus rhamnosus 10,000 MMU CELLS/CAPSULE PO SCH ×2 (09:38→20:47)
[2020-09-19] MEDS: levoTHYROXINE 75mcg tablet PO SCH (09:38)
[2020-09-19] MEDS: digoxin 250mcg (0.25mg) tablet PO SCH (09:38)
[2020-09-19] MEDS: estradiol 1mg tablet PO SCH (09:39)
[2020-09-19 11:00] VITALS: BP 141/68
[2020-09-19 11:10] LABS: HEMATOCRIT 28.6 % (35.0-45.0); HEMOGLOBIN 9.6 g/dl (12.0-16.0); MEAN CORPUSCULAR HEMOGLOBIN 30.3 PG (27.0-31.0); MEAN CORPUSCULAR HGB CONC 33.5 g/dL (33.0-36.5); MEAN CORPUSCULAR VOLUME 90.4 FL (78-98); MEAN PLATELET VOLUME 10.4 FL (7.4-10.4); PLATELET COUNT 220 X10'3 (140-440); RED BLOOD COUNT 3.17 X10'6 (4.20-5.60); RED CELL DISTRIBUTION WIDTH 15.3 % (11.5-14.5); WHITE BLOOD COUNT 9.2 X10'3 (4.5-11.0)
[2020-09-19] MEDS: HYDROcodone/acetaminophen 10/325mg tab PO PRN ×2 (12:26→23:25)
[2020-09-19] MEDS: magnesium oxide 400mg tablet PO SCH (12:26)
[2020-09-19 15:00] VITALS: BP 133/54
[2020-09-19 17:30] LABS: MEAN CORPUSCULAR HGB CONC 32.8 g/dL (33.0-36.5); WHITE BLOOD COUNT 8.2 X10'3 (4.5-11.0)
[2020-09-19 17:31] LABS: HEMATOCRIT 28.9 % (35.0-45.0); HEMOGLOBIN 9.5 g/dl (12.0-16.0); MEAN CORPUSCULAR HEMOGLOBIN 30.1 PG (27.0-31.0); MEAN CORPUSCULAR VOLUME 91.9 FL (78-98); MEAN PLATELET VOLUME 10.3 FL (7.4-10.4); PLATELET COUNT 219 X10'3 (140-440); RED BLOOD COUNT 3.15 X10'6 (4.20-5.60); RED CELL DISTRIBUTION WIDTH 15.2 % (11.5-14.5)
--- NOTE | 2020-09-19 18:20 | NUR ---
Problems reprioritized. Patient report given, questions answered & plan of care reviewed with Cora RN.
[2020-09-19 19:30] VITALS: BP 148/80
[2020-09-19] MEDS ORDERED: potassium Cl 20 mEq SR tablet PO PRN (20:15)
[2020-09-19] MEDS ORDERED: potassium CL 10mEq/100ml bag 100 ML IV PRN (20:15)
[2020-09-19] MEDS: valacyclovir 500mg tablet PO SCH (20:47)
[2020-09-19] MEDS: potassium Cl 20 mEq SR tablet PO PRN (20:47)
[2020-09-19] MEDS: pramipexole 0.25mg tablet PO SCH (20:47)
[2020-09-19 23:50] LABS: HEMATOCRIT 28.4 % (35.0-45.0); HEMOGLOBIN 9.3 g/dl (12.0-16.0); MEAN CORPUSCULAR HEMOGLOBIN 29.9 PG (27.0-31.0); MEAN CORPUSCULAR HGB CONC 32.7 g/dL (33.0-36.5); MEAN CORPUSCULAR VOLUME 91.5 FL (78-98); MEAN PLATELET VOLUME 10.4 FL (7.4-10.4); PLATELET COUNT 210 X10'3 (140-440); RED BLOOD COUNT 3.11 X10'6 (4.20-5.60); RED CELL DISTRIBUTION WIDTH 15.4 % (11.5-14.5); WHITE BLOOD COUNT 7.7 X10'3 (4.5-11.0)
[2020-09-20] VITALS (7 sets, daily range): BP systolic 112–171; BP diastolic 56–85
[2020-09-20] MEDS: potassium Cl 20 mEq SR tablet PO PRN (00:46)
[2020-09-20] MEDS: pregabalin 25mg capsule PO PRN ×2 (02:21→19:15)
[2020-09-20] MEDS: ipratropium/albuterol 3ml nebule IH PRN (03:14)
[2020-09-20] MEDS: HYDROcodone/acetaminophen 10/325mg tab PO PRN ×3 (05:02→23:25)
[2020-09-20 05:23] LABS: BASOPHILS # (AUTO) 0.1 X10'3 (0-0.2); EOSINOPHILS # (AUTO) 0.2 X10'3 (0-0.9); EOSINOPHILS % (AUTO) 3.6 % (0-6); HEMATOCRIT 27.8 % (35.0-45.0); LYMPHOCYTES # (AUTO) 0.9 X10'3 (1.1-4.8); LYMPHOCYTES % (AUTO) 14.5 % (21-51); MEAN CORPUSCULAR HEMOGLOBIN 29.3 PG (27.0-31.0); MEAN CORPUSCULAR HGB CONC 32.4 g/dL (33.0-36.5); MEAN CORPUSCULAR VOLUME 90.6 FL (78-98); MEAN PLATELET VOLUME 10.5 FL (7.4-10.4); MONOCYTES # (AUTO) 0.7 X10'3 (0-0.9); MONOCYTES % (AUTO) 10.9 % (2-12); NEUTROPHILS # (AUTO) 4.4 X10'3 (1.8-7.7); PLATELET COUNT 210 X10'3 (140-440); RED BLOOD COUNT 3.07 X10'6 (4.20-5.60); RED CELL DISTRIBUTION WIDTH 15.3 % (11.5-14.5); WHITE BLOOD COUNT 6.3 X10'3 (4.5-11.0)
[2020-09-20 05:25] LABS: ALBUMIN 2.9 G/DL (3.4-5.0); ANION GAP -1 (8-16); BLOOD UREA NITROGEN 18 MG/DL (7-18); BUN/CREATININE RATIO 23.7 (6.6-38.0); CALCIUM 8.6 MG/DL (8.5-10.1); CHLORIDE 104 MMOL/L (99-107); CREATININE 0.76 MG/DL (0.40-0.90); GLUCOSE 94 MG/DL (70-104); MAGNESIUM 2.1 MG/DL (1.5-2.4); POTASSIUM 3.7 MMOL/L (3.5-5.1); SODIUM 143 MMOL/L (135-145); TOTAL CARBON DIOXIDE 39.7 MMOL/L (24-32); eGFR 73 ML/MIN
--- NOTE | 2020-09-20 07:00 | NUR ---
Patient in room PCU 3028. I have received report from kofi RN and had the opportunity to ask questions and assume patient care.
[2020-09-20] MEDS: albuterol 2.5 MG/3 ML nebule NEB SCH ×4 (07:45→21:15)
[2020-09-20] MEDS: budesonide 0.5mg/2ml UD nebule IH SCH ×2 (07:45→21:15)
[2020-09-20] MEDS: K and/or MAG REPLACEMENT MC SCH ×2 (08:00→19:03)
[2020-09-20] MEDS: carvedilol 6.25mg tablet PO SCH ×2 (09:33→19:15)
[2020-09-20] MEDS: docusate sod 100mg capsule PO SCH ×2 (09:34→19:22)
[2020-09-20] MEDS: losartan 50mg tablet PO SCH (09:34)
[2020-09-20] MEDS: lactobacillus rhamnosus 10,000 MMU CELLS/CAPSULE PO SCH ×2 (09:34→19:15)
[2020-09-20] MEDS: atorvastatin 20mg tablet PO SCH (09:35)
[2020-09-20] MEDS: estradiol 1mg tablet PO SCH (09:35)
[2020-09-20] MEDS: digoxin 250mcg (0.25mg) tablet PO SCH (09:35)
[2020-09-20] MEDS: levoTHYROXINE 75mcg tablet PO SCH (09:36)
[2020-09-20 11:17] LABS: HEMATOCRIT 24.2 % (35.0-45.0); MEAN CORPUSCULAR HEMOGLOBIN 30.1 PG (27.0-31.0); MEAN CORPUSCULAR HGB CONC 33.1 g/dL (33.0-36.5); PLATELET COUNT 195 X10'3 (140-440); RED BLOOD COUNT 2.66 X10'6 (4.20-5.60); RED CELL DISTRIBUTION WIDTH 15.3 % (11.5-14.5); WHITE BLOOD COUNT 5.6 X10'3 (4.5-11.0)
[2020-09-20] MEDS: magnesium oxide 400mg tablet PO SCH (12:46)
--- NOTE | 2020-09-20 18:25 | NUR ---
Problems reprioritized. Patient report given, questions answered & plan of care reviewed with Prudence RN.
--- NOTE | 2020-09-20 18:34 | NUR ---
Patient in room PCU 3028. I have received report from COURTNEY DUMONT and had the opportunity to ask questions and assume patient care.
[2020-09-20] MEDS: LORazepam 0.5 MG tablet PO PRN (19:15)
[2020-09-20] MEDS: valacyclovir 500mg tablet PO SCH (21:58)
[2020-09-20] MEDS: pramipexole 0.25mg tablet PO SCH (21:58)
[2020-09-20] MEDS ORDERED: HYDROcodone/acetaminophen 5mg/325mg tablet PO PRN ×2 (23:05→23:10)
[2020-09-21 02:42] VITALS: BP 152/71
[2020-09-21] MEDS: ipratropium/albuterol 3ml nebule IH PRN (03:41)
[2020-09-21] MEDS: HYDROcodone/acetaminophen 10/325mg tab PO PRN ×3 (03:56→12:16)
[2020-09-21 05:23] LABS: ALBUMIN 2.8 G/DL (3.4-5.0); ANION GAP 1 (8-16); BLOOD UREA NITROGEN 11 MG/DL (7-18); BUN/CREATININE RATIO 15.7 (6.6-38.0); CALCIUM 8.6 MG/DL (8.5-10.1); CHLORIDE 105 MMOL/L (99-107); GLUCOSE 93 MG/DL (70-104); MAGNESIUM 2.3 MG/DL (1.5-2.4); POTASSIUM 3.8 MMOL/L (3.5-5.1); SODIUM 145 MMOL/L (135-145); TOTAL CARBON DIOXIDE 38.6 MMOL/L (24-32); eGFR 80 ML/MIN
[2020-09-21 05:26] LABS: BASOPHILS # (AUTO) 0.1 X10'3 (0-0.2); EOSINOPHILS # (AUTO) 0.2 X10'3 (0-0.9); HEMATOCRIT 27.7 % (35.0-45.0); HEMOGLOBIN 9.1 g/dl (12.0-16.0); MEAN CORPUSCULAR HGB CONC 32.8 g/dL (33.0-36.5); NEUTROPHILS # (AUTO) 3.9 X10'3 (1.8-7.7); RED CELL DISTRIBUTION WIDTH 15.5 % (11.5-14.5); WHITE BLOOD COUNT 5.9 X10'3 (4.5-11.0)
[2020-09-21 05:29] LABS: BASOPHILS % (AUTO) 0.9 % (0-1); EOSINOPHILS % (AUTO) 3.6 % (0-6); LYMPHOCYTES % (AUTO) 16.8 % (21-51); MEAN CORPUSCULAR HEMOGLOBIN 30.1 PG (27.0-31.0); MEAN CORPUSCULAR VOLUME 91.8 FL (78-98); MEAN PLATELET VOLUME 10.1 FL (7.4-10.4); MONOCYTES # (AUTO) 0.7 X10'3 (0-0.9); MONOCYTES % (AUTO) 11.9 % (2-12); NEUTROPHILS % (AUTO) 66.8 % (42-75); PLATELET COUNT 207 X10'3 (140-440); RED BLOOD COUNT 3.02 X10'6 (4.20-5.60)
[2020-09-21 06:30] VITALS: BP 137/56
--- NOTE | 2020-09-21 06:40 | NUR ---
Patient in room PCU 3028. I have received report from TIM Morley and had the opportunity to ask questions and assume patient care.
--- NOTE | 2020-09-21 06:41 | NUR ---
Problems reprioritized. Patient report given, questions answered & plan of care reviewed with ALEXA RN.
[2020-09-21] MEDS: K and/or MAG REPLACEMENT MC SCH (07:30)
[2020-09-21] MEDS: budesonide 0.5mg/2ml UD nebule IH SCH (07:32)
[2020-09-21] MEDS: albuterol 2.5 MG/3 ML nebule NEB SCH ×2 (07:32→10:11)
[2020-09-21] MEDS: losartan 50mg tablet PO SCH (08:37)
[2020-09-21] MEDS: estradiol 1mg tablet PO SCH (08:40)
[2020-09-21] MEDS: lactobacillus rhamnosus 10,000 MMU CELLS/CAPSULE PO SCH (08:40)
[2020-09-21] MEDS: atorvastatin 20mg tablet PO SCH (08:41)
[2020-09-21] MEDS: digoxin 250mcg (0.25mg) tablet PO SCH (08:41)
[2020-09-21] MEDS: docusate sod 100mg capsule PO SCH (08:41)
[2020-09-21] MEDS: carvedilol 6.25mg tablet PO SCH (08:41)
[2020-09-21] MEDS: levoTHYROXINE 75mcg tablet PO SCH (08:41)
[2020-09-21 09:11] LABS: GIANT PLATELET FEW; LARGE PLATELETS FEW; PLATELET ESTIMATE NORMAL; POLYCHROMASIA FEW
[2020-09-21 09:13] LABS: STOMATOCYTES 1+
[2020-09-21 11:00] VITALS: BP 125/60
[2020-09-21] MEDS ORDERED: PANT-47 PO (11:18)
[2020-09-21] MEDS: magnesium oxide 400mg tablet PO SCH (12:16)
--- NOTE | 2020-09-21 14:45 | NUR ---
DC inst provided to pt. IV DC'd, tip intact. All belongings sent w/pt. WC to front lobby.
[2020-09-23] MEDS ORDERED: BUSP10TA3 PO (03:40)
== END 2020-09-21 14:50 | disposition home or self-care (01) | DRG 377 ==
LOC: ER 11:07 → ED HOLD 13:54 → PCU 3S 23:58
PROVIDERS: ADMIT Family Medicine; ATTEND Family Medicine
PROC: 0DB68ZX Excision of Stomach, Via Natural or Artificial Opening Endoscopic, Diagnostic (ICD-10-PCS; principal; 2020-09-18)
PROC: 30233N1 Transfusion of Nonautologous Red Blood Cells into Peripheral Vein, Percutaneous Approach (ICD-10-PCS; 2020-09-18)
DX: K29.01 Acute gastritis with bleeding (principal); J96.00 Acute respiratory failure, unspecified whether with hypoxia or hypercapnia; D68.59 Other primary thrombophilia; I48.11 Longstanding persistent atrial fibrillation; D62 Acute posthemorrhagic anemia; E87.2 Acidosis; G20 Parkinson's disease; I50.9 Heart failure, unspecified; I11.0 Hypertensive heart disease with heart failure; J44.9 Chronic obstructive pulmonary disease, unspecified; G62.9 Polyneuropathy, unspecified; I27.20 Pulmonary hypertension, unspecified; Z90.710 Acquired absence of both cervix and uterus; Z85.841 Personal history of malignant neoplasm of brain; Z86.73 Personal history of transient ischemic attack (TIA), and cerebral infarction without residual deficits; Z90.49 Acquired absence of other specified parts of digestive tract; E78.5 Hyperlipidemia, unspecified
CPT/HCPCS: 36415; 36430; 36600; 43239; 71045; 74176; 80048; 80053; 82272; 82803; 83735; 83880; 84484; 85008; 85018; 85025; 85027; 86885; 86900; 86901; 86920; 87081; 88305; 88342; 93005; 94640; 94660; 94760; 96365; 96375; 99152; 99285; C9113; G0378; J1940; J2250; J2270; J2543; J3010; J7030; J7040; J7626; P9016